=== PATIENT | male | born 1970 | race Caucasian/White ===

== ENCOUNTER 2016-04-07 21:39 | Emergency (ER) | payer OTHER ==
[2016-04-07 21:47] VITALS: BP 154/102; PULSE 74; TEMP 97.9; BMI 26.4
--- NOTE | 2016-04-07 22:30 | PDOC ---
History of Present Illness - General Chief Complaint: Injury Stated Complaint: SWOLLEN HAND Time Seen by Provider: 04/07/16 21:44 History Source: Patient, Family Exam Limitations: No Limitations - History of Present Illness Initial Comments: 04/07/16 22:25 Patient states was assisting a friend push a car when he slipped on ice and fell onto his hands that was fisted 4 days ago. States was swollen and painful at the time, use ice packs but has not resolved. Came for evaluation Occurred: reports: other (4) Modifying Factors: improves with: cold therapy Associated Symptoms (Fall): denies symptoms Past History - Travel Traveled outside of the country in the last 30 days: No Close contact w/someone who was outside of country & ill: No - Past Medical History Home Medications: Ambulatory Orders Oxycodone HCl 30 mg PO TID #10 tablet 02/20/11 HTN: Yes - Immunization History Immunization Up to Date: Yes - Psycho/Social/Smoking Cessation Hx Anxiety: No Suicidal Ideation: No Smoking Status: No Smoking History: Never smoked Number of Cigarettes Smoked Daily: 0 Review of Systems - Review of Systems Able to Perform ROS?: Yes Is the patient limited Telugu proficient: Yes Constitutional: Yes: Symptoms Reported, See HPI. No: Chills, Fever HEENTM: No: Symptoms Reported Musculoskeletal: Yes: Symptoms Reported, Joint Pain, Joint Swelling Integumentary: Yes: Symptoms Reported, See HPI, Bruising Neurological: Yes: Symptoms reported, Paresthesia All Other Systems: Reviewed and Negative *Physical Exam - Vital Signs Last Vital Signs Temp Pulse Resp BP Pulse Ox 97.9 F 74 18 154/102 98 04/07/16 21:45 04/07/16 21:45 04/07/16 21:45 04/07/16 21:45 04/07/16 21:45 - Physical Exam General Appearance: Yes: Nourished, Appropriately Dressed, Apparent Distress, Mild Distress HEENT: positive: CORKY, Normal ENT Inspection, TMs Normal, Pharynx Normal Neck: positive: Supple. negative: Tender, Lymphadenopathy (R), Lymphadenopathy (L) Respiratory/Chest: positive: Lungs Clear Extremity: positive: Normal Capillary Refill, Tender (2 midpoint hand, worse on the ulnar aspect, unable to flex and extend and painful movement with fourth and fifth digits. Neurovascular intact intact to fingers). 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 Ortho-Glass boxer splint placed with sling and patient encouraged to follow-up this week for further evaluation from Dr. Ma/on-call physician and hand specialist *DC/Admit/Observation/Transfer Diagnosis at time of Disposition: Boxer's fracture Qualifiers: Encounter type: initial encounter Fracture type: closed Qualified Code(s): S62.309A - Unspecified fracture of unspecified metacarpal bone, initial encounter for closed fracture - Discharge Dispostion Disposition: HOME Condition at time of disposition: Stable Admit: No - Referrals Referrals: Nilesh Clemons MD [Primary Care Provider] - Danny Ma MD [Staff Physician] - - Patient Instructions Printed Discharge Instructions: DI for Boxer's Fracture Additional Instructions: Rest, ice to area on and off for 15 minutes 4-6 times a day Avoid heavy lifting or exercise until pain and swelling is resolved or until further directed Keep area highly elevated to reduce swelling Use splints/Farshad wrap as directed Followup with orthopedist in one to 2 days - this week for reevaluation and casting or further treatment if significantly improved may wait one week for followup with orthopedist May use ibuprofen 2-200 mg tablets every 6 hours as needed for pain - Post Discharge Activity Work/School Note: Back to Work
== END 2016-04-07 22:34 | disposition home or self-care (01) ==
LOC: JERFT 21:39
PROC: 2W3EX1Z Immobilization of Right Hand using Splint (ICD-10-PCS; principal; 2016-04-07)
DX: S62.316A Displaced fracture of base of fifth metacarpal bone, right hand, initial encounter for closed fracture (principal); I10 Essential (primary) hypertension; W00.0XXA Fall on same level due to ice and snow, initial encounter; Y93.89 Activity, other specified; Y92.414 Local residential or business street as the place of occurrence of the external cause
CPT/HCPCS: 73110-TC-RT; 73130-TC-RT; 99281-25

== ENCOUNTER 2019-01-03 17:23 | Inpatient (IN) | payer OTHER ==
--- NOTE | 2019-01-03 17:27 | PDOC ---
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
--- NOTE | 2019-01-03 17:57 | PDOC ---
History of Present Illness - General Chief Complaint: Cold Symptoms Stated Complaint: SICK Time Seen by Provider: 01/03/19 17:24 History Source: Patient - History of Present Illness Timing/Duration: reports: other Associated Symptoms: reports: cough Past History - Past Medical History Allergies/Adverse Reactions: Allergies Allergy/AdvReac Type Severity Reaction Status Date / Time No Known Allergies Allergy Verified 01/03/19 17:28 Home Medications: Ambulatory Orders Oxycodone HCl 30 mg PO TID #10 tablet 02/20/11 COPD: No HTN: Yes Other medical history: Sarcodoisis - Immunization History Immunization Up to Date: Yes - Psycho Social/Smoking Cessation Hx Smoking Status: No Smoking History: Never smoked Number of Cigarettes Smoked Daily: 0 Information on smoking cessation initiated: No Hx Alcohol Use: No Drug/Substance Use Hx: No Review of Systems - Review of Systems Constitutional: No: Chills, Fever Respiratory: Yes: Cough, Shortness of Breath. No: Wheezing, Hemoptysis Cardiac (ROS): No: Chest Pain *Physical Exam - Vital Signs Last Vital Signs Temp Pulse Resp BP Pulse Ox 97.5 F L 85 19 170/85 99 01/03/19 17:25 01/03/19 17:25 01/03/19 17:25 01/03/19 17:25 01/03/19 17:25 - Physical Exam General Appearance: Yes: Appropriately Dressed. No: Apparent Distress HEENT: positive: Normal Voice Neck: positive: Supple. negative: Lymphadenopathy (R), Lymphadenopathy (L) Respiratory/Chest: positive: Lungs Clear, Normal Breath Sounds. negative: Respiratory Distress, Wheezing Cardiovascular: positive: Regular Rate, S1, S2 Integumentary: positive: Dry, Warm Neurologic: positive: Fully Oriented, Alert, Normal Mood/Affect ED Treatment Course - LABORATORY CBC & Chemistry Diagram: 01/03/19 17:50 01/03/19 17:50 - RADIOLOGY Radiology Studies Ordered: Category Date Time Status CHEST CT WITHOUT CONTRAST [CT] Stat CT Scan 01/03/19 17:52 Ordered Medical Decision Making - Medical Decision Making 01/03/19 17:53 48-year-old male history of hypertension, pulmonary sarcoids, taken off steroids many years ago per patient, follows up with transition rn in [facility], here with mostly dry cough for 6 days with possible shortness of breath. No hemoptysis, chest pain, wheezing, fever or chills see exam Cough w/ ? sob H/o pulm sarcoids, no longer on steroids Stable here w/ clear chest/lungs Extensive interstitial infiltrates on CXR today, s/p CT chest 2013 at [facility] read as extensive mediastinal and b/l hilar lymphadenopathy -will get dry CT chest to better evaluate -labs 01/03/19 18:[address] shows some chronic findings seen on prior imaging and "extensive interstitial infiltrates" which was not seen on prior study, cannot rule out acute pneumonitis. Given cough and possible shortness of breath in the setting of worsening sarcoids, will start on antibiotics, steroids and admit as d/w ED attg. Case discussed with Dr. Joyner of pulmonology who agrees w/ above management and states he will see patient inhouse in the am. Labs remarkable for creatinine of 3 w/ calcium of 14. Labs in 2013 here were within normal limits. Suspect numbers most likely chronic as no acute sxs, i.e. AMS, bodyaches, GI, cardiac or sxs. Patient reports being told several years ago that his kidney test was high but does not remember the number. Has since been lost to follow-up. Currently on metoprolol for high blood pressure. Consult also placed for renal 01/03/19 19:47 At this time have not heard back from renal. Pending callback from hospitalist to admit 01/03/19 19:53 Discussed with hospitalist and patient admitted Discharge - Discharge Information Problems reviewed: Yes Clinical Impression/Diagnosis: Cough, H/O sarcoidosis, Elevated serum creatinine, Hypercalcemia Condition: Fair Disposition: HOME - Admission Yes - Follow up/Referral - Patient Discharge Instructions - Post Discharge Activity
[2019-01-03 18:16] LABS: BASO % 0.9 % (0-2.0); EOS % 3.9 % (0-4.5); LYMPH % 16.1 % (8-40); MCH 28.9 pg (25.7-33.7); MCHC 33.2 g/dl (32.0-35.9); MEAN PLT VOLUME 10.2 fl (7.5-11.1); MONO % 12.2 % (3.8-10.2); NEUT % 66.9 % (42.8-82.8); PLATELET COUNT 204 K/MM3 (134-434); RBC 5.17 M/mm3 (4.00-5.60); RDW 13.3 % (11.9-15.9); WHITE BLOOD COUNT 7.7 K/mm3 (4.0-10.0)
[2019-01-03 18:37] LABS: ALBUMIN 3.6 g/dl (3.4-5.0); ALK PHOS 122 U/L (45-117); ANION GAP 6 MMOL/L (8-16); BILIRUBIN,TOTAL 0.4 mg/dL (0.2-1); BLOOD UREA NITROGEN 29.2 mg/dL (7-18); CHLORIDE 100 mmol/L (98-107); CO2 30 mmol/L (21-32); GLUCOSE,RANDOM 105 mg/dL (74-106); POTASSIUM 4.3 mmol/L (3.5-5.1); SGOT/AST 17 U/L (15-37); SGPT/ALT 27 U/L (13-61); SODIUM 136 mmol/L (136-145); TOT PROT 8.4 g/dl (6.4-8.2)
[2019-01-03 18:40] LABS: CALCIUM 14.7 mg/dL (8.5-10.1)
[2019-01-03] MEDS ORDERED: methylPREDNISolone NA SUCC 125 MG/2 ML VIAL IVPUSH ONE (18:48)
[2019-01-03] MEDS ORDERED: AZITHROMYCIN IVPB 500 MG in DEXTROSE 5%-WATER - 250 ML IVPB ONE (18:48)
[2019-01-03] MEDS ORDERED: CEFTRIAXONE 1 GM in DEXTROSE 5%-WATER - 50 ML IVPB ONE (18:48)
[2019-01-03] MEDS ORDERED: SODIUM CHLORIDE 1,000 ML IV STA ×2 (18:49→20:57)
[2019-01-03] MEDS ORDERED: AZITHROMYCIN IVPB 500 MG/250 ML BAG IVPB ONE (19:20)
[2019-01-03] MEDS ORDERED: methylPREDNISolone NA SUCC 125 MG/2 ML VIAL ONE (19:21)
[2019-01-03] MEDS ORDERED: cefTRIAXone SODIUM 1 GM VIAL ONE (19:21)
--- NOTE | 2019-01-03 19:59 | PN ---
Teaching Attending Note Name of Resident: Yusef Miguel ATTENDING PHYSICIAN STATEMENT I saw and evaluated the patient. I reviewed the resident's note and discussed the case with the resident. I agree with the resident's findings and plan as documented. SUBJECTIVE: Patient is a 48 year old man with PMH of Hypertension, Pulmonary sarcoidosis ( off steroids) and ?CKD presenting to the ER with dry cough for 6 days with possible shortness of breath. Also had congestion and subjective chills and was evaluated at an Urgent care. Say he took the Flu shot. They discharged him with Nicole Jo. Has had headache, poor appetite and and one loose bowel movement. Denies hemoptysis, chest pain, wheezing, fever or chills. Has been off steroids for years and follows up with [employer] in [place]. Denies tobacco, alcohol or illicit drug use. No recent sick contacts but recently travelled to the [facility]. FH of hypertension and osteoporosis. OBJECTIVE: Alert Vital Signs Period Temp Pulse Resp BP Sys/Price Pulse Ox Last 24 Hr 97.5 F 85 19 170/85 99 HEENT: No Jaundice, eye redness or discharge, PERRLA, EOMI. Normocephalic, atraumatic. External ears are normal and hearing is grossly intact. No nasal discharge. Neck: Supple, nontender. No palpable adenopathy or thyromegaly. No JVD Chest: Good effort. Clear to auscultation and percussion. Heart: Regular. No S3, rub or murmur Abdomen: Not distended, soft, nontender and no HSM. No rebound or guarding. Normal bowel sounds. Ext: Peripheral pulses intact. No leg edema. Skin: Warm and dry. No petechiae, rash or ecchymosis. Neuro: Alert. Oriented x3. CN 2-12 grossly intact. Sensation grossly intact in all four extremities and DTR are symmetric. Psych: Appropriate mood and affect. Good insight. Current Medications Generic Name Dose Route Start Last Admin Trade Name Freq PRN Reason Stop Dose Admin Heparin Sodium (Porcine) 5,000 unit 01/04/19 06:00 Heparin - SQ TID WENDY Home Medications Medication Instructions Recorded Oxycodone HCl 30 mg PO TID #10 tablet 02/20/11 Abnormal Lab Results 01/03/19 01/03/19 17:50 17:50 Monocytes % 12.2 H Anion Gap 6 L BUN 29.2 H Creatinine 3.0 H Calcium 14.7 H* Alkaline Phosphatase 122 H Total Protein 8.4 H ASSESSMENT AND PLAN: 1. Flare up of Pulmonary Sarcoidosis - No obvious precipitating factor. CXR and CT chest show new extensive bilateral interstitial infiltrates. Chest CT also shows mediastinal and hilar lymphadenopathy as well as a sclerotic lesion within T10 vertebral body - an MRI of thoracic spine is recommended. ER staff discussed the case with the [employer] and patient started on Rocephin, Azithromycin, Solumedrol and IV NS. Will check Mg, PTH, Phosphate levels and trend serum calcium while hydrating with IV NS at 150 ml/hour. Will get urinalysis and treat with prednisone 40 mg po qd and protonix 40 mg po qd. No need to continue IV antibiotics at this time. Consult Pulmonary. EKG shows NSR with RBBB, LAFB and t-wave inversion in III and V3. Will repeat EKG and troponin. Will continue comprehensive care for all of patients comorbid conditions. Will get MRI thoracic spine to investigate lesion on T10. 2. CKD - Cause unclear. Likely has superimposed JACKIE due to polyuria induced by hypercalcemia. Will get kidney sonogram and monitor urine output while hydrating him. Will consult nephrology and avoid nephrotoxic agents such as NSAIDS, aminoglycosides, contrast dyes and certain Alternative medicine products. 3. Uncontrolled hypertension - Restart suitable outpatient antihypertensive drugs when clinically appropriate. 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 Nonpharmacologic measures to control hypertension like weight loss, salt restriction and exercise discussed. Importance of adherence to treatment regimen and attainment of normotension emphasized. 4. DVT prophylaxis - Heparin 5000u sq tid. 5. Advance directives - Full code
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
[2019-01-03 22:54] LABS: URINE APPEARANCE CLOUDY; URINE BILIRUBIN NEGATIVE (NEGATIVE); URINE COLOR YELLOW; URINE GLUCOSE (UA) NEGATIVE (NEGATIVE); URINE KETONE NEGATIVE (NEGATIVE); URINE LEUK ESTERASE NEGATIVE (NEGATIVE); URINE NITRITE NEGATIVE (NEGATIVE); URINE PROTEIN NEGATIVE (NEGATIVE)
[2019-01-03] MEDS ORDERED: amLODIPine BESYLATE 5 MG TABLET (FP) PO ONE (22:57)
[2019-01-03] MEDS ORDERED: amLODIPine BESYLATE 5 MG TABLET (FP) ONE (23:02)
[2019-01-04] MEDS: SODIUM CHLORIDE 1,000 ML IV SCH ×3 (00:41→21:17)
[2019-01-04] MEDS: HEPARIN NA (PORCINE) 5,000 UNITS/ML 1ML VIAL SQ SCH ×3 (05:55→21:25)
[2019-01-04 09:29] LABS: HEMATOCRIT 39.8 % (35.4-49); HEMOGLOBIN 13.2 GM/dL (11.7-16.9); MCH 28.6 pg (25.7-33.7); MCHC 33.2 g/dl (32.0-35.9); MEAN CELL VOLUME 86.1 fl (80-96); MEAN PLT VOLUME 10.9 fl (7.5-11.1); PLATELET COUNT 182 K/MM3 (134-434); RBC 4.62 M/mm3 (4.00-5.60); RDW 13.1 % (11.9-15.9); WHITE BLOOD COUNT 6.5 K/mm3 (4.0-10.0)
[2019-01-04] MEDS: predniSONE 20 MG TABLET (UD) PO SCH (09:51)
[2019-01-04] MEDS: PANTOPRAZOLE 40 MG TABLET (FP) PO SCH (09:51)
[2019-01-04] MEDS ORDERED: DOXYCYCLINE INJECTION 100 MG in DEXTROSE 5%-WATER - 100 ML IVPB SCH (10:00)
[2019-01-04] MEDS ORDERED: DOXYCYCLINE INJECTION 100 MG in DEXTROSE 5%-WATER 100 ML IVPB SCH (10:00)
[2019-01-04 10:05] LABS: BLOOD UREA NITROGEN 31.6 mg/dL (7-18); CALCIUM 12.8 mg/dL (8.5-10.1); CREATININE 2.9 mg/dL (0.55-1.3); MAGNESIUM 1.7 mg/dL (1.8-2.4); PHOSPHOROUS 3.4 mg/dL (2.5-4.9); POTASSIUM 4.4 mmol/L (3.5-5.1)
[2019-01-04] MEDS ORDERED: MAGNESIUM OXIDE 400 MG TABLET (FP) PO ONE (10:17)
[2019-01-04 11:44] VITALS: BMI 23.8
--- NOTE | 2019-01-04 12:01 | CON.PULM ---
Consult Consult Specialty:: PULMONARY Referred by:: Dr Roberts Reason for Consultation:: shortness of breath - History of Present Illness Chief Complaint: shortness of breath History of Present Illness: 48yo male with h/o HTN, sarcoidosis who was admitted with shortness of breath and cough for the past month. Reports subjective fevers and chills. +cough productive of yellow sputum. He was diagnosed with sarcoidosis via bronchoscopy about 2-3 years ago, was on prednisone for 6 months at a time, last on steroids 6 months ago. He is a nonsmoker. 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 CT chest done showing bilateral interstitial infiltrates as well as mediastinal lymphadenopathy. - History Source History Provided By: Patient, Medical Record Limitations to Obtaining History: No Limitations - Past Medical History Cardio/Vascular: Yes: HTN Pulmonary: Yes: Other (sarcoidosis) - Alcohol/Substance Use Hx Alcohol Use: Yes (social) - Smoking History Smoking history: Never smoked Have you smoked in the past 12 months: No Aproximately how many cigarettes per day: 0 Home Medications - Allergies Allergies/Adverse Reactions: Allergies Allergy/AdvReac Type Severity Reaction Status Date / Time No Known Allergies Allergy Verified 01/03/19 17:28 - Home Medications Home Medications: Ambulatory Orders NK [No Known Home Medication] 01/03/19 Review of Systems - Review of Systems Constitutional: reports: Chills, Fever, Weakness Eyes: denies: Recent Change in Vision HENT: denies: Nasal Congestion, Throat Pain Neck: denies: Stiffness, Tenderness Cardiovascular: reports: Shortness of Breath. denies: Chest Pain, Edema, Palpitations Respiratory: reports: Cough, SOB on Exertion. denies: Hemoptysis, Wheezing Gastrointestinal: denies: Abdominal Pain, Nausea, Vomiting Genitourinary: denies: Dysuria, Hematuria Neurological: denies: Dizziness, Headache Endocrine: denies: Unexplained Weight Loss Physical Exam Vital Sings: Vital Signs Temperature 97.4 F L 01/04/19 05:00 Pulse Rate 88 01/04/19 05:00 Respiratory Rate 01/04/19 05:00 Blood Pressure 147/90 01/04/19 05:00 O2 Sat by Pulse Oximetry (%) 96 01/04/19 02:21 Constitutional: Yes: Calm Eyes: Yes: Conjunctiva Clear, EOM Intact HENT: Yes: Atraumatic, Normocephalic Neck: Yes: Supple, Trachea Midline Cardiovascular: Yes: Regular Rate and Rhythm Respiratory: Yes: Diminished (decreased breath sounds at the bases) ...Clubbing: No Gastrointestinal: Yes: Normal Bowel Sounds, Soft. No: Tenderness Edema: No Neurological: Yes: Alert, Oriented Labs: CBC, BMP 01/04/19 08:49 01/04/19 06:00 Imaging - Results Chest X-ray: Report Reviewed, Image Reviewed Cat Scan: Report Reviewed, Image Reviewed (bilateral interstitial infiltrates, mediastinal lymphadenopathy) Assessment/Plan Sarcoidosis r/o Pneumonia Acute vs CKD Hypercalcemia likely related to sarcoidosis HTN - agree with prednisone - inhaled bronchodilators - antibiotics - f/u cultures - IVF - monitor lytes - will likely need chronic steroids if associated with hypercalcemia - will need outpt PFTs and f/u of chest imaging in 6-8 weeks - DVT prophylaxis Thank you for this consult Jos Alvarado MD
[2019-01-04] MEDS ORDERED: ALBUTEROL SO4 0.083% IH SOL 2.5 MG/3 ML VIAL.NEB. NEB PRN (12:25)
[2019-01-04] MEDS ORDERED: DEXTROSE 5%-WATER 100 ML IVPB ONE (12:29)
[2019-01-04] MEDS ORDERED: DOXYCYCLINE HYCLATE 100 MG VIAL ONE (12:29)
--- NOTE | 2019-01-04 12:38 | EKG ---
Test Reason : Blood Pressure : / mmHG Vent. Rate : 081 BPM Atrial Rate : 081 BPM P-R Int : 176 ms QRS Dur : 156 ms QT Int : 396 ms P-R-T Axes : 056 -66 013 degrees QTc Int : 460 ms NORMAL SINUS RHYTHM RIGHT BUNDLE BRANCH BLOCK LEFT ANTERIOR FASCICULAR BLOCK BIFASCICULAR BLOCK T WAVE ABNORMALITY, CONSIDER INFEROLATERAL ISCHEMIA ABNORMAL ECG WHEN COMPARED WITH ECG OF 03-JAN-2019 19:43, NO SIGNIFICANT CHANGE WAS FOUND Confirmed by AUNG BARTLETT MD ([id number]) on 01/04/2019 12:38:12 PM Referred By: Confirmed By:AUNG BARTLETT MD
--- NOTE | 2019-01-04 12:38 | EKG ---
Test Reason : Blood Pressure : / mmHG Vent. Rate : 081 BPM Atrial Rate : 081 BPM P-R Int : 176 ms QRS Dur : 162 ms QT Int : 394 ms P-R-T Axes : 055 -69 012 degrees QTc Int : 457 ms NORMAL SINUS RHYTHM RIGHT BUNDLE BRANCH BLOCK LEFT ANTERIOR FASCICULAR BLOCK BIFASCICULAR BLOCK ABNORMAL ECG NO PREVIOUS ECGS AVAILABLE Confirmed by TRI GRAY, AUNG ([id number]) on 01/04/2019 12:38:26 PM Referred By: Confirmed By:AUNG BARTLETT MD
--- NOTE | 2019-01-04 13:42 | PN ---
Addendum entered and electronically signed by Devora Briggs, RESIDENT 01/04/19 18 :18: abx changed to PO keflex and doxycycline MRI of spine ordered to check sclerotic lesion. Addendum entered and electronically signed by Devora Briggs, RESIDENT 01/04/19 14 :21: note: hypercalcemia ~15 should resolve w/ chronic prednisone. if does not, agents such as ketoconazole, bisphosphonates can used . likely 2/2 sarcoid Original Note: Progress Note (short form) - Note Progress Note: Hospitalist Medicine States that he developed worsening SOB, productive cough over the last week. A/ w few episodes of diarrhea and subjective chills. 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 Traveled to [place] mo ago. Never smoked. Used to f/u with Dr. Villegas from [facility] for his sarcoid. Lately has had trouble making appointments. Had been tx with prednisone previously. States that he also has known renal dz and follows with Dr. Danny Kidd [phone]. ([facility]) Vitals 01/04/19 05:00 Temperature 97.4 F L Pulse Rate 88 Respiratory 19 Rate Blood Pressure 147/90 Physical exam general: sitting up comfortably, in NAD. pleasant HEENT: NCAT, PERRLA, dry mucous membranes neck: supple cardio: S1, S2 RRR. no r/m/g pulm: decreased breath sounds. no accessory m usage abdomen: soft, nontender, nondistended neuro: equine dentist 2-12 grossly intact. 5/5 motor strength UE, LE. sensation intact LE: 2+ pulses, no edema Laboratory Tests 01/04/19 01/04/19 01/04/19 06:00 08:49 08:49 WBC 6.5 Hgb 13.2 Hct 39.8 Plt Count 182 Sodium 137 Potassium 4.4 Chloride 102 Carbon Dioxide 27 BUN 31.6 H Creatinine 2.9 H Calcium 12.8 H Pending Magnesium 1.7 L PTH Intact Pending PTH Intact Intraop 0 m Pending Microbiology 01/03/19 22:30 Urine For Antigen Detection Legionella Antigen - Final 01/03/19 22:30 Urine For Antigen Detection Streptococcus pneumoniae Antigen (M - Final Imaging 01/03/2019: Chest CT: extensive mediastinal and bilateral hilar lymphadenopathy c/w sarcoidosis. Possibility of acute pneumonitis can't be excluded. Sclerotic lesion within the T10 vertebral body. 01/03/19: renal sono: no hydro, no acute pathology EKG :RBBB, LAFB, TWI leads 3, V3, qt 465ms Assessment/Plan 48 y/o M with PMH of HTN, Pulmonary sarcoidosis (off steroids) and CKD who presented with dry cough, few episodes of diarrhea and subjective chills for six day duration a/w SOB. #sarcoid flare #r/o CAP PNA -started on prednisone 40mg qd (Day 1) -c/w GI PPX while on steroid -c/w duonebs RQID, ventolin nebs PRN -f/u RSV panel, AFB, sputum cx, urine legionella Ag -c/w ceftriaxone (Day2), doxy (Day1) for CAP -will need outpt PFTs and f/u chest imaging in 6-8 wks #HTN -pt not on any home meds -will check other files w/ outside specialists before starting agent #CKD -will need files from [facility] -awaiting call back; possible 2/2 sarcoid -renal sono: WNL, no hydro or acute abnormality -c/w IVF in case of JACKIE on CKD #F/E/N IV NS 125 cc/hr as dry continue to follow lytes na controlled diet #PPX DVT: Hep 5k TID GI: protonix #Dispo admitted to med-surg <Devora Briggs - Last Filed: 01/04/19 14:01> - Note Progress Note: Seen and examined; discussed at length with resident team and indicated consultants. Independently reviewed all hou historical, PE, diagnostic, and imaging findings. Agree with above documentation and assessment and plan as documented by resident aside from as supplemented below. 10 sys ROS done and negative aside from HPI VS labs imaging reviewed NAD, AAO resting in bed NC AT EOMI PERRLA HR wnl, +s1/2 NT ND +BS CN2-12 wnl, no progressive neuro sx Normal mood, appropriate behavior A/P: Presents with <Rudi Roberts - Last Filed: 01/05/19 10:23>
--- NOTE | 2019-01-04 15:25 | CONSULT ---
Consult - text type - Consultation Consultation Note: Renal consult for JACKIE vs. CKD This is a 48 year old gentleman with history of Pulmonary sarcoidosis and hypertension who presented from home with complaints of shortness of breath and found to have Cr of 2.9. Pt does follow up with a dirt supervisor in the city but has not seem them in over 6 months. He does not know what his baseline renal function is. He denies any history of kidney stones. Does use NSAIDs at home for pain. Currently denies any flank pain and is making urine w/o obstructive symptoms. Denies any recent antibiotic use or contrast exposure. No shortness of breath, chest pain, fever or chills at the present time. PMhx: as above Allergies: NKDA Family Hx: NC Social Hx: No tobacco use ROS: As per HPI, all other pertinent ros negative Home Medications Medication Instructions Recorded Meloxicam 15 mg PO DAILY 01/04/19 Oxycodone HCl 30 mg PO Q6H PRN 01/04/19 Zolpidem Tartrate 10 mg PO DAILY PRN 01/04/19 Vital Signs Temperature 97.4 F L 01/04/19 05:00 Pulse Rate 88 01/04/19 05:00 Respiratory Rate 19 01/04/19 05:00 Blood Pressure 147/90 01/04/19 05:00 O2 Sat by Pulse Oximetry (%) 96 01/04/19 02:21 Intake & Output 01/01/19 01/02/19 01/03/19 01/04/19 23:59 23:59 23:59 23:59 Intake Total 915 Balance 915 Weight 77.927 kg 77.564 kg NAD awake and alert neck supple no JVD RRR, no M/R CTA soft NT/ND no bladder distension, no CVA tenderness no LE edema, clubbing or cyanosis no skin rash CBC, BMP 01/04/19 08:49 01/04/19 06:00 Current Medications Albuterol Sulfate (Ventolin 0.083% Nebulizer Soln -) 1 amp NEB Q4H PRN PRN Reason: SHORT OF BREATH/WHEEZING Albuterol/Ipratropium (Duoneb -) 1 amp NEB RQID WEND[facility] Heparin Sodium (Porcine) (Heparin -) 5,000 unit SQ TID [facility] Last Admin: 01/04/19 14:41 Dose: 5,000 unit Sodium Chloride (Normal Saline -) 1,000 mls @ 125 mls/hr IV ASDIR [facility] Last Admin: 01/04/19 00:41 Dose: 125 mls/hr Ceftriaxone Sodium 1 gm/ (Dextrose) 50 mls @ 100 mls/hr IVPB DAILY [facility] Doxycycline Hyclate 100 mg/ (Dextrose) 100 mls @ 100 mls/hr IVPB BID [facility] Last Admin: 01/04/19 12:33 Dose: 100 mls/hr Pantoprazole Sodium (Protonix -) 40 mg PO DAILY [facility] Last Admin: 01/04/19 09:51 Dose: 40 mg Prednisone (Deltasone -) 40 mg PO DAILY [facility] Last Admin: 01/04/19 09:51 Dose: 40 mg 48 year old gentleman with history of Pulmonary sarcoidosis and hypertension who presented from home with complaints of shortness of breath and found to have Cr of 2.9. 1. Acute kidney injury 2. Chronic kidney disease 3. Sarcoidosis 4. Hypertension 5. Hypercalcemia Differential for JACKIE/CKD includes ATN (NSIAD use) vs. nephrocalcinosis vs. interstitial nephritis vs. volume depletion Renal US showed no signs of stones or obstruction FeNa is 7.9% indicating tubular injury and UA w/o WBC or RBC Check urine eosinophils agree with trial of IV hydration no acute indication for INFUSION THERAPY NURSE at this time may benefit from renal biopsy as outpatient if there is no significant improvement in renal function Continue steroids as ordered Trend Ca levels Follow up PTH, and pth related peptide. Thank you Ziyad Ramirez DO
[2019-01-04] MEDS: ALBUTEROL SO4 2.5/IPRATROPIUM 0.5 INH SOL 3 ML VIAL.NEB. NEB SCH ×2 (16:32→21:15)
[2019-01-04] MEDS: DOXYCYCLINE HYCLATE 100 MG CAPSULE PO SCH (17:19)
[2019-01-04] MEDS ORDERED: CEFTRIAXONE 1 GM in DEXTROSE 5%-WATER - 50 ML IVPB SCH (19:00)
[2019-01-04] MEDS: CEPHALEXIN MONOHYDRATE 250 MG CAPSULE (FP) PO SCH (21:25)
[2019-01-05] MEDS: SODIUM CHLORIDE 1,000 ML IV SCH (01:32)
[2019-01-05] MEDS: HEPARIN NA (PORCINE) 5,000 UNITS/ML 1ML VIAL SQ SCH ×2 (06:00→15:37)
[2019-01-05] MEDS: ALBUTEROL SO4 2.5/IPRATROPIUM 0.5 INH SOL 3 ML VIAL.NEB. NEB SCH ×3 (07:50→15:25)
[2019-01-05 08:45] LABS: BASO % 0.4 % (0-2.0); EOS % 0.2 % (0-4.5); HEMATOCRIT 35.6 % (35.4-49); HEMOGLOBIN 11.7 GM/dL (11.7-16.9); LYMPH % 13.8 % (8-40); MCH 28.6 pg (25.7-33.7); MCHC 32.8 g/dl (32.0-35.9); MEAN CELL VOLUME 87.1 fl (80-96); MEAN PLT VOLUME 11.1 fl (7.5-11.1); MONO % 6.1 % (3.8-10.2); NEUT % 79.5 % (42.8-82.8); PLATELET COUNT 157 K/MM3 (134-434); RBC 4.09 M/mm3 (4.00-5.60); RDW 12.8 % (11.9-15.9); WHITE BLOOD COUNT 9.7 K/mm3 (4.0-10.0)
[2019-01-05 08:55] LABS: BLOOD UREA NITROGEN 33.8 mg/dL (7-18); CREATININE 2.4 mg/dL (0.55-1.3); MAGNESIUM 1.7 mg/dL (1.8-2.4); PHOSPHOROUS 3.5 mg/dL (2.5-4.9)
[2019-01-05] MEDS ORDERED: PT OWN MED DRAWER 7, Y5N ONE (09:09)
[2019-01-05] MEDS: PANTOPRAZOLE 40 MG TABLET (FP) PO SCH (09:17)
[2019-01-05] MEDS: CEPHALEXIN MONOHYDRATE 250 MG CAPSULE (FP) PO SCH (09:17)
[2019-01-05] MEDS: DOXYCYCLINE HYCLATE 100 MG CAPSULE PO SCH (09:17)
[2019-01-05] MEDS: predniSONE 20 MG TABLET (UD) PO SCH (09:17)
[2019-01-05] MEDS ORDERED: guaiFENesin 600 MG TABLET.ER (FP) PO SCH (10:00)
[2019-01-05] MEDS ORDERED: MAGNESIUM OXIDE 400 MG TABLET (FP) PO ONE (12:00)
--- NOTE | 2019-01-05 13:24 | EKG ---
Test Reason : Blood Pressure : / mmHG Vent. Rate : 084 BPM Atrial Rate : 084 BPM P-R Int : 174 ms QRS Dur : 156 ms QT Int : 410 ms P-R-T Axes : 059 -66 000 degrees QTc Int : 484 ms NORMAL SINUS RHYTHM RIGHT BUNDLE BRANCH BLOCK LEFT ANTERIOR FASCICULAR BLOCK BIFASCICULAR BLOCK T WAVE ABNORMALITY, CONSIDER INFEROLATERAL ISCHEMIA ABNORMAL ECG WHEN COMPARED WITH ECG OF 03-JAN-2019 22:03, NO SIGNIFICANT CHANGE WAS FOUND Confirmed by ZANE JUAREZ MD ([id number]) on 01/05/2019 1:24:18 PM Referred By: Confirmed By:ZANE JUAREZ MD
--- NOTE | 2019-01-05 13:49 | PN ---
Progress Note (short form) - Note Progress Note: Renal follow up for JACKIE/CKD Seen and examined at the bedside offers no acute complaints shortness of breath is much improved no chest pain, fever, chills, N/V/D making urine tolerating oral diet Vital Signs Temperature 98.7 F 01/05/19 12:29 Pulse Rate 62 01/05/19 12:29 Respiratory Rate 20 01/05/19 12:29 Blood Pressure 137/81 01/05/19 12:29 O2 Sat by Pulse Oximetry (%) 94 L 01/04/19 21:00 Intake & Output 01/02/19 01/03/19 01/04/19 01/05/19 23:59 23:59 23:59 23:59 Intake Total 1515 2180 Output Total 200 Balance 1515 1980 Weight 77.927 kg 77.564 kg NAD no JVD RRR, no M/R CTA soft NT/ND no LE edema, clubbing or cyanosis CBC, BMP 01/05/19 07:10 01/05/19 07:10 Laboratory Tests 01/04/19 01/05/19 06:00 07:10 Calcium 12.8 H 11.0 H Phosphorus 3.4 3.5 Magnesium 1.7 L 1.7 L Current Medications Albuterol Sulfate (Ventolin 0.083% Nebulizer Soln -) 1 amp NEB Q4H PRN PRN Reason: SHORT OF BREATH/WHEEZING Albuterol/Ipratropium (Duoneb -) 1 amp NEB RQID [facility] Last Admin: 01/05/19 11:23 Dose: 1 amp Cephalexin HCl (Keflex -) 250 mg PO BID [facility] Last Admin: 01/05/19 09:17 Dose: 250 mg Doxycycline Hyclate (Vibramycin -) 100 mg PO BID@1000,1800 [facility] Last Admin: 01/05/19 09:17 Dose: 100 mg Guaifenesin (Mucinex -) 600 mg PO BID [facility] Last Admin: 01/05/19 10:55 Dose: 600 mg Heparin Sodium (Porcine) (Heparin -) 5,000 unit SQ TID [facility] Last Admin: 01/05/19 06:00 Dose: 5,000 unit Sodium Chloride (Normal Saline -) 1,000 mls @ 125 mls/hr IV ASDIR [facility] Last Admin: 01/05/19 01:32 Dose: 125 mls/hr Pantoprazole Sodium (Protonix -) 40 mg PO DAILY [facility] Last Admin: 01/05/19 09:17 Dose: 40 mg Prednisone (Deltasone -) 40 mg PO DAILY [facility] Last Admin: 01/05/19 09:17 Dose: 40 mg 48 year old gentleman with history of Pulmonary sarcoidosis and hypertension who presented from home with complaints of shortness of breath and found to have Cr of 2.9. 1. Acute kidney injury 2. Chronic kidney disease 3. Sarcoidosis 4. Hypertension 5. Hypercalcemia Differential for JACKIE/CKD includes ATN (NSIAD use) vs. nephrocalcinosis vs. interstitial nephritis Baseline Cr from 06/2017 was 1.6, rise in Cr now can be attributed to progressive disease vs. injury in setting of hypercalcinosis. FeNa is 7.9% indicating tubular injury and UA w/o WBC or RBC Urine eosinophils pending agree with trial of IV hydration may benefit from renal biopsy as outpatient Continue steroids as ordered Ca levels improved advised to continue aggressive oral hydration continue PO prednisone at present dose to follow up with us or prior nephrologsit on discharge. Thank you Ziyad Ramirez DO
--- NOTE | 2019-01-05 14:12 | PN ---
Progress Note, Physician History of Present Illness: pulmonary alert,comfortable,-sob,-congestion - Current Medication List Current Medications: Active Medications Albuterol Sulfate (Ventolin 0.083% Nebulizer Soln -) 1 amp NEB Q4H PRN PRN Reason: SHORT OF BREATH/WHEEZING Albuterol/Ipratropium (Duoneb -) 1 amp NEB RQID [facility] Last Admin: 01/05/19 11:23 Dose: 1 amp Cephalexin HCl (Keflex -) 250 mg PO BID [facility] Last Admin: 01/05/19 09:17 Dose: 250 mg Doxycycline Hyclate (Vibramycin -) 100 mg PO BID@1000,1800 [facility] Last Admin: 01/05/19 09:17 Dose: 100 mg Guaifenesin (Mucinex -) 600 mg PO BID [facility] Last Admin: 01/05/19 10:55 Dose: 600 mg Heparin Sodium (Porcine) (Heparin -) 5,000 unit SQ TID [facility] Last Admin: 01/05/19 06:00 Dose: 5,000 unit Sodium Chloride (Normal Saline -) 1,000 mls @ 125 mls/hr IV ASDIR [facility] Last Admin: 01/05/19 01:32 Dose: 125 mls/hr Pantoprazole Sodium (Protonix -) 40 mg PO DAILY [facility] Last Admin: 01/05/19 09:17 Dose: 40 mg Prednisone (Deltasone -) 40 mg PO DAILY [facility] Last Admin: 01/05/19 09:17 Dose: 40 mg - Objective Vital Signs: Vital Signs Temperature 98.7 F 01/05/19 12:29 Pulse Rate 62 01/05/19 12:29 Respiratory Rate 20 01/05/19 12:29 Blood Pressure 137/81 01/05/19 12:29 O2 Sat by Pulse Oximetry (%) 94 L 01/04/19 21:00 Constitutional: Yes: Well Nourished, Calm Eyes: Yes: WNL HENT: Yes: WNL Neck: Yes: WNL Cardiovascular: Yes: Regular Rate and Rhythm, S1, S2 Respiratory: Yes: CTA Bilaterally Gastrointestinal: Yes: Normal Bowel Sounds, Soft Extremities: Yes: WNL Edema: No Labs: CBC, BMP 01/05/19 07:10 01/05/19 07:10 Laboratory Tests 01/05/19 07:10 BUN 33.8 H Creatinine 2.4 H Calcium 11.0 H Problem List - Problems (1) Acute on chronic kidney failure Code(s): N17.9 - ACUTE KIDNEY FAILURE, UNSPECIFIED; N18.9 - CHRONIC KIDNEY DISEASE, UNSPECIFIED (2) Elevated serum creatinine Code(s): R79.89 - OTHER SPECIFIED ABNORMAL FINDINGS OF BLOOD CHEMISTRY (3) H/O sarcoidosis Code(s): Z86.2 - PRSNL HISTORY OF DIS OF THE BLD/BLD-FORM ORG/IMMUN MECHNSM (4) Hypercalcemia Code(s): E83.52 - HYPERCALCEMIA Assessment/Plan Assessment/Plan Sarcoidosis r/o Pneumonia Acute vs CKD Hypercalcemia likely related to sarcoidosis HTN - prednisone 50 MG DAILY - inhaled bronchodilators - antibiotics - IVF - monitor lytes - will likely need chronic steroids if associated with hypercalcemia - outpt PFTs and f/u of chest imaging in 6-8 weeks - DVT prophylaxis - monitor lytes renal function,Ca DR SAGE
[2019-01-05 15:13] VITALS: BP 148/74; PULSE 84; TEMP 97.4
--- NOTE | 2019-01-05 17:59 | DS ---
Physical Exam: SUBJECTIVE: Patient seen and examined at bedside. States that his breathing has improved. Ready to go home. OBJECTIVE: Vital Signs Period Temp Pulse Resp BP Sys/Price Pulse Ox Last 24 Hr 97.4 F-98.7 F 48-93 18-20 119-156/55-88 94 Physical exam general: sitting up comfortably, in NAD. pleasant HEENT: NCAT, PERRLA, dry mucous membranes neck: supple cardio: S1, S2 RRR. no r/m/g pulm: decreased breath sounds. no accessory m usage abdomen: soft, nontender, nondistended neuro: steam table attendant 2-12 grossly intact. 5/5 motor strength UE, LE. sensation intact LE: 2+ pulses, no edema LABS Laboratory Results - last 24 hr 01/05/19 01/05/19 07:10 07:10 WBC 9.7 RBC 4.09 Hgb 11.7 Hct 35.6 MCV 87.1 MCH 28.6 MCHC 32.8 RDW 12.8 Plt Count 157 MPV 11.1 Absolute Neuts (auto) 7.7 Neutrophils % 79.5 Lymphocytes % 13.8 Monocytes % 6.1 Eosinophils % 0.2 D Basophils % 0.4 Nucleated RBC % 0 Sodium 140 Potassium 4.0 Chloride 107 Carbon Dioxide 29 Anion Gap 4 L BUN 33.8 H Creatinine 2.4 H Est GFR (CKD-EPI)AfAm 35.89 Est GFR (CKD-EPI)NonAf 30.96 Random Glucose 84 Calcium 11.0 H Phosphorus 3.5 Magnesium 1.7 L Microbiology 01/03/19 22:30 Urine For Antigen Detection Legionella Antigen - Final 01/03/19 22:30 Urine For Antigen Detection Streptococcus pneumoniae Antigen (M - Final Imaging 01/03/2019: Chest CT: extensive mediastinal and bilateral hilar lymphadenopathy c/w sarcoidosis. Possibility of acute pneumonitis can't be excluded. Sclerotic lesion within the T10 vertebral body. 01/03/19: renal sono: no hydro, no acute pathology EKG :RBBB, LAFB, TWI leads 3, V3, qt 465ms HOSPITAL COURSE: Date of Admission:01/03/19 Date of Discharge: 01/05/19 Admission diagnosis: sarcoid flare, r/o PNA 48 y/o M with PMH of HTN, Pulmonary sarcoidosis (off steroids) and CKD who presented with dry cough, few episodes of diarrhea and subjective chills for six day duration a/w SOB. Chest CT revealed extensive mediastinal and bilateral hilar lymphadenopathy c/w sarcoidosis. Possibility of acute pneumonitis can't be excluded. Sclerotic lesion within the T10 vertebral body. Pt was admitted for sarcoid flare and r/o CAP PNA. He was managed as follows in the hospital: #sarcoid flare #r/o CAP PNA -received 2 doses of prednisone 40mg. is to continue on 40mg x [address] Alvarado and 30mg thereafter. will chronically be on steroids, d/t his hypercalcemia -c/w GI PPX while on steroid. sent home with protonix -c/w duonebs RQID, ventolin nebs PRN. sent with inhalers -was on cef, doxy in hospital. sent home on keflex BID, doxy BID for 4 additional days. -will need outpt PFTs and f/u chest imaging in 6-8 wks #HTN -pt not on any home meds #CKD -will f/u with Dr Ramirez -encouraged to drink 2L of water daily -f/u urine eosinophils, other renal tests from hospital #T10 sclerotic lesion on body -underwent MRI of t-spine in hospital -result will be reviewed on outpatient visit Minutes to complete discharge: 55 Discharge Summary Problems reviewed: Yes Reason For Visit: SHORTNESS OF BREATH Condition: Fair - Instructions Diet, Activity, Other Instructions: you were in the hospital because you had a flare of your sarcoid. You were seen by the primary team, a lung doctor and a kidney doctor. You improved and are being sent home. While you were here, you were also treated for possible pneumonia. Medications 1. Please continue with prednisone 40mg daily for a week until you see the pulmonary doctor (lung doctor). Please take 30mg for a week after. 2. Please also continue with: albuterol (take 1 puff every 4 hours as needed) and albuterol/ipratropium inhalers (scheduled every 6 hours) 3. You will need 4 more days of antibiotics starting tomorrow (01/06) until please take keflex 250mg - 1 pill twice a day doxycycline 100mg 1 pill twice a day as well. 4. You will take protonix (an acid suppressant) once a day while you are on the steroid. Follow up Please follow up with the following doctors: -Dr. Li, a primary care doctor on Tuesday01/09/19. She will read the thoracic spine MRI to check for the lesion at T10 that you had while you were in the hospital. -Dr. Alvarado- the lung doctor who saw you in the hospital - this week. -Dr. Ramirez - the kidney doctor who saw you in the hospital this week. He will determine if you need further testing of your kidneys or a biopsy. Care Please drink lots of water to help your kidneys. At least 2 liters a day. Additional testing You will also need: -outpatient PFTs (pulmonary function testing) and f/u of chest imaging in 6- 8 weeks. Your primary care doctor / or the lung doctor will also arrange for this. - Referrals: Devora Briggs RES [Resident] - Mekhi Li MD [Staff Physician] - 01/09/19 (9 AM) Ziyad Ramirez MD [Staff Physician] - 1 Week Jos Alvarado MD, MD [Staff Physician] - 1 Week Disposition: HOME - Home Medications Comprehensive Discharge Medication List: Ambulatory Orders Meloxicam 15 mg PO DAILY 01/04/19 Zolpidem Tartrate 10 mg PO DAILY PRN 01/04/19 Albuterol 0.083% Nebulizer Little [Ventolin 0.083% Nebulizer Soln -] 1 amp NEB Q4H PRN #2 inhaler 01/05/19 Albuterol 2.5/Ipratropium 0.5 [Duoneb -] 1 amp NEB RQID #2 inhaler 01/05/19 Cephalexin [Keflex] 250 mg PO BID #8 capsule 01/05/19 Doxycycline Hyclate 100 mg PO BID #8 tablet 01/05/19 Pantoprazole Sodium [Protonix -] 40 mg PO DAILY #30 tablet.ec 01/05/19 Prednisone 40 mg PO DAILY #7 tab.ds.pk 01/05/19 predniSONE [Deltasone -] 30 mg PO DAILY #7 tab 01/05/19 This patient is new to me today: No Emergency Visit: No Critical Care patient: No - Discharge Referral Referred to [facility] No
[2019-01-06] MEDS ORDERED: predniSONE 20 MG TABLET (UD) PO SCH (10:00)
== END 2019-01-05 17:21 | disposition home or self-care (01) | DRG 142 ==
LOC: JER 17:23 → JERFT 17:23 → JERBED 19:16 → J5S 23:34
PROVIDERS: ADMIT Internal Medicine; ATTEND Internal Medicine
DX: D86.9 Sarcoidosis, unspecified (principal); J18.9 Pneumonia, unspecified organism; E83.52 Hypercalcemia; R59.1 Generalized enlarged lymph nodes; N17.9 Acute kidney failure, unspecified; I13.10 Hypertensive heart and chronic kidney disease without heart failure, with stage 1 through stage 4 chronic kidney disease, or unspecified chronic kidney disease; N18.9 Chronic kidney disease, unspecified; R79.89 Other specified abnormal findings of blood chemistry
CPT/HCPCS: 36415; 71046-TC-FY; 71250-TC; 72146-TC; 76775-TC; 80048; 80053; 81003; 82310; 82340; 82436; 82550; 82565; 82570; 83735; 83970; 84100; 84133; 84156; 84300; 84484; 84540; 85025; 85027; 87070; 87116; 87205; 87206; 87633; 87899; 93005; 93010; 94640; 99284-25; J1644; J7030

== ENCOUNTER 2019-08-27 14:23 | Emergency (ER) | payer OTHER ==
[2019-08-27 14:56] VITALS: TEMP 98.5; BMI 25.1
--- NOTE | 2019-08-27 14:58 | PDOC ---
Rapid Medical Evaluation Chief Complaint: Shortness of Breath Time Seen by Provider: 08/27/19 14:54 Medical Evaluation: Allergies Allergy/AdvReac Type Severity Reaction Status Date / Time No Known Allergies Allergy Verified 08/14/19 13:44 08/27/19 14:55 HPI: The patient is a 48M presents with symptoms of tactile fever, dry cough, intermittent SOB x 3 days, complicated by this/these comorbidities: sarcoidosis. pt report being followed up by jboss developer who has ordered chest CT and approved by insurance to be done on outpatient. Denies any other symptoms. report no SOB now. pt has not taken anything for symptoms. pt never checked temp ROS: NEGATIVE: difficulty breathing, chest pain, lightheadedness, dizziness, nausea, vomiting and diarrhea. Other 12 point ROS reviewed and negative. Exam: General: NAD, Well-Appearing, Awake, Alert Oriented x3. Vital signs stable. ENT: No rhinorrhea or nasal congestion. Neck: FROM, no midline tenderness. Lungs: Clear to auscultation bilaterally without wheezes, rhonchi or rales. Normal excursion. Patient is able to speak in full sentences. Heart: HR: Regular rhythm, S1-S2 present, no murmurs rubs or gallops. Abdomen: Non-distended. MSK/Extremities: No decrease ROM, No obvious deformities. No obvious cyanosis noted. Neuro: Normal Gait, Cranial Nerves II through XII Grossly Intact. Skin: No obvious rashes, bruising. Color Normal Appearing. Assessment/Plan: [Cough/fever] Patient has a history of this/these comorbidities: [none], denies recent travel and known COVID exposure. Patient does not meet testing criteria at this time. ASSESSMENT: Denies recent travel and known Covid exposure. Treatment: exam unremarkable CXR to r/o PNA dispo to f/u with jboss developer if normal CXR 08/27/19 15:44 CXR shows sig b/l lungs infiltrate pt will be transferred to [facility] for f/u management case discussed with Dr. Wise Discharge Disposition - Diagnosis Acute dyspnea, H/O sarcoidosis - Discharge Dispostion Condition at time of disposition: Stable Decision to Admit order: No - Referrals - Patient Instructions - Post Discharge Activity
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
[2019-08-27] MEDS ORDERED: ACETAMINOPHEN 1000 MG/100 ML VIAL (NON FORMULARY) IVPB ONE (17:33)
[2019-08-27] MEDS ORDERED: CYCLOBENZAPRINE HCL 5 MG TABLET PO ONE (17:45)
[2019-08-27] MEDS ORDERED: ACETAMINOPHEN INJECTION 100 ML IVPB ONE (17:48)
[2019-08-27] MEDS ORDERED: CYCLOBENZAPRINE HCL 10 MG TABLET (FP) ONE (17:48)
[2019-08-27 18:28] VITALS: BP 139/89; PULSE 76
[2019-08-27 18:32] LABS: BASO % 0.4 % (0-2.0); EOS % 0.4 % (0-4.5); HEMATOCRIT 47.7 % (35.4-49); HEMOGLOBIN 16.1 GM/dL (11.7-16.9); LYMPH % 21.6 % (8-40); MCH 29.3 pg (25.7-33.7); MCHC 33.8 g/dl (32.0-35.9); MEAN CELL VOLUME 86.7 fl (80-96); MEAN PLT VOLUME 10.5 fl (7.5-11.1); MONO % 14.3 % (3.8-10.2); NEUT % 63.3 % (42.8-82.8); PLATELET COUNT 136 K/MM3 (134-434); RDW 15.1 % (11.9-15.9); WHITE BLOOD COUNT 4.6 K/mm3 (4.0-10.0)
[2019-08-27 18:53] LABS: ALBUMIN 3.5 g/dl (3.4-5.0); BILIRUBIN,TOTAL 0.4 mg/dL (0.2-1); BLOOD UREA NITROGEN 23.8 mg/dL (7-18); CALCIUM 9.3 mg/dL (8.5-10.1); CREATININE 2.1 mg/dL (0.55-1.3); POTASSIUM 4.6 mmol/L (3.5-5.1); TOT PROT 7.9 g/dl (6.4-8.2)
== END 2019-08-27 19:52 | disposition home or self-care (01) ==
LOC: JER 14:23
PROC: 3E0333Z Introduction of Anti-inflammatory into Peripheral Vein, Percutaneous Approach (ICD-10-PCS; principal; 2019-08-27)
DX: M54.5 Low back pain (principal); D86.9 Sarcoidosis, unspecified; U07.1 COVID-19
CPT/HCPCS: 36415; 71045-TC-FY; 71250-TC; 80053; 85025; 99284-25; J0131; U0003

== ENCOUNTER 2020-01-04 20:31 | Inpatient (IN) | payer OTHER ==
[2020-01-04 20:40] VITALS: BP 122/71; PULSE 64; TEMP 97.8; BMI 25.1
[2020-01-04 22:20] LABS: BASO % 0.7 % (0-2.0); EOS % 1.3 % (0-4.5); HEMATOCRIT 46.4 % (35.4-49); HEMOGLOBIN 14.9 GM/dL (11.7-16.9); LYMPH % 14.3 % (8-40); MCH 28.5 pg (25.7-33.7); MCHC 32.2 g/dl (32.0-35.9); MEAN CELL VOLUME 88.6 fl (80-96); MEAN PLT VOLUME 10.4 fl (7.5-11.1); NEUT % 75.7 % (42.8-82.8); PLATELET COUNT 172 K/MM3 (134-434); RBC 5.24 M/mm3 (4.00-5.60); RDW 14.9 % (11.9-15.9); WHITE BLOOD COUNT 8.8 K/mm3 (4.0-10.0)
[2020-01-04 22:27] LABS: INR 0.91 (0.83-1.09)
[2020-01-04 22:28] LABS: CHLORIDE 104 mmol/L (98-107); POTASSIUM 4.1 mmol/L (3.5-5.1); SODIUM 140 mmol/L (136-145)
[2020-01-04 22:30] LABS: ALBUMIN 3.4 g/dl (3.4-5.0); ANION GAP 4 MMOL/L (8-16); CALCIUM 9.3 mg/dL (8.5-10.1); CO2 31 mmol/L (21-32); GLUCOSE,RANDOM 102 mg/dL (74-106)
[2020-01-04 22:35] LABS: BILIRUBIN,TOTAL 0.3 mg/dL (0.2-1); SGOT/AST 16 U/L (15-37); SGPT/ALT 30 U/L (13-61); TOT PROT 7.4 g/dl (6.4-8.2)
[2020-01-04 22:36] LABS: ALK PHOS 101 U/L (45-117)
== END 2020-01-05 02:35 | disposition left against medical advice (07) | DRG 204 ==
LOC: JER 20:31 → JERBED 01-05 02:25
PROVIDERS: ADMIT Internal Medicine; ATTEND Internal Medicine
DX: R55 Syncope and collapse (principal); D86.9 Sarcoidosis, unspecified; I12.9 Hypertensive chronic kidney disease with stage 1 through stage 4 chronic kidney disease, or unspecified chronic kidney disease; N18.9 Chronic kidney disease, unspecified; Z86.19 Personal history of other infectious and parasitic diseases; M54.9 Dorsalgia, unspecified
CPT/HCPCS: 36415; 70450-TC; 71045-TC-FY; 80053; 82550; 84484; 85025; 85610; 85730; 93005; 93010; 99285-25; C9803; U0003

== ENCOUNTER 2021-04-15 08:54 | Emergency (ER) | payer OTHER ==
[2021-04-15 09:05] VITALS: BP 137/74; PULSE 65; TEMP 97.9; BMI 25.1
== END 2021-04-15 10:43 | disposition home or self-care (01) ==
LOC: JERFT 08:54
DX: L02.412 Cutaneous abscess of left axilla (principal)
CPT/HCPCS: 82962; 99283-25

== ENCOUNTER 2021-04-18 10:04 | Emergency (ER) | payer OTHER ==
[2021-04-18 10:26] VITALS: BP 133/66; PULSE 64; TEMP 97.8; BMI 25.1
== END 2021-04-18 10:55 | disposition home or self-care (01) ==
LOC: JER 10:04
DX: L02.412 Cutaneous abscess of left axilla (principal)
CPT/HCPCS: 99283-25

== ENCOUNTER 2021-07-18 14:19 | Emergency (ER) | payer OTHER ==
[2021-07-18 14:28] VITALS: TEMP 97.9; BMI 23.7
[2021-07-18] MEDS ORDERED: ACETAMINOPHEN 500 MG TABLET (FP) PO ONE (14:48)
[2021-07-18] MEDS ORDERED: DIPHTH,PERTUSS(ACELL),TET 0.5 ML DISP.SYRIN IM ONE ×2 (14:48→14:52)
[2021-07-18] MEDS ORDERED: ACETAMINOPHEN 325 MG TABLET (FP) ONE (14:52)
[2021-07-18] MEDS ORDERED: CEFAZOLIN 2 GM in DEXTROSE 5%-WATER - 50 ML IVPB ONE (15:06)
[2021-07-18] MEDS ORDERED: ceFAZolin SODIUM 1 GM VIAL ONE (15:57)
[2021-07-18] MEDS ORDERED: CEFAZOLIN 2 GM in DEXTROSE 5%-WATER - 100 ML IVPB ONE (17:00)
[2021-07-18 17:04] LABS: BASO % 0.7 % (0-2.0); EOS % 1.2 % (0-4.5); HEMATOCRIT 42.2 % (35.4-49); HEMOGLOBIN 14.4 GM/dL (11.7-16.9); LYMPH % 7.9 % (8-40); MCH 29.2 pg (25.7-33.7); MCHC 34.1 g/dl (32.0-35.9); MEAN CELL VOLUME 85.7 fl (80-96); MEAN PLT VOLUME 10.2 fl (7.5-11.1); MONO % 11.4 % (3.8-10.2); NEUT % 78.8 % (42.8-82.8); PLATELET COUNT 163 10^3/uL (134-434); RBC 4.92 M/mm3 (4.00-5.60); RDW 14.1 % (11.9-15.9); WHITE BLOOD COUNT 6.4 K/mm3 (4.0-10.0)
[2021-07-18 17:10] LABS: INR 1.04 (0.83-1.09)
[2021-07-18 17:12] LABS: ACTIVATED PTT 30.5 SECONDS (25.2-36.5)
[2021-07-18 17:24] LABS: ALBUMIN 3.5 g/dl (3.4-5.0); BLOOD UREA NITROGEN 25.8 mg/dL (7-18); CALCIUM 9.7 mg/dL (8.5-10.1)
[2021-07-18 17:27] LABS: CREATININE 1.8 mg/dL (0.55-1.3)
[2021-07-18 17:28] LABS: BILIRUBIN,TOTAL 0.6 mg/dL (0.2-1); TOT PROT 8.4 g/dl (6.4-8.2)
[2021-07-18 18:39] VITALS: PULSE 75
[2021-07-18 18:46] VITALS: BP 147/85
== END 2021-07-18 18:50 | disposition short-term general hospital (02) ==
LOC: JER 14:19
PROC: 3E03329 Introduction of Other Anti-infective into Peripheral Vein, Percutaneous Approach (ICD-10-PCS; principal; 2021-07-18)
PROC: 3E033NZ Introduction of Analgesics, Hypnotics, Sedatives into Peripheral Vein, Percutaneous Approach (ICD-10-PCS; 2021-07-18)
PROC: 3E033NZ Introduction of Analgesics, Hypnotics, Sedatives into Peripheral Vein, Percutaneous Approach (ICD-10-PCS; 2021-07-18)
PROC: 3E0234Z Introduction of Serum, Toxoid and Vaccine into Muscle, Percutaneous Approach (ICD-10-PCS; 2021-07-18)
DX: S62.522B Displaced fracture of distal phalanx of left thumb, initial encounter for open fracture (principal); W10.9XXA Fall (on) (from) unspecified stairs and steps, initial encounter
CPT/HCPCS: 36415; 72128-TC; 72131-TC; 72170-TC-FY; 73130-TC-LT-FY; 73502-TC-RT-FY; 80053; 85025; 85610; 85730; 86850; 86900; 86901; 90471; 90715; 96374; 96375; 96376; 99285-25; C9803-CS; U0003; U0005

== ENCOUNTER 2021-08-04 09:42 | Inpatient (IN) | payer OTHER ==
[2021-08-04] MEDS ORDERED: SODIUM CHLORIDE 0.9% 500 ML INFUS.BAG IV ONE (11:38)
[2021-08-04] MEDS ORDERED: ONDANSETRON 4 MG/2 ML VIAL IVPUSH ONE (11:42)
[2021-08-04] MEDS ORDERED: FAMOTIDINE 20 MG/50 ML IVPB 20 MG/50 ML MG IVPB ONE ×2 (11:42→12:07)
[2021-08-04] MEDS ORDERED: KETOROLAC TROMETHAMINE 30 MG/1 ML VIAL IVPUSH ONE (11:51)
[2021-08-04] MEDS ORDERED: ONDANSETRON 4 MG/2 ML VIAL ONE (12:07)
[2021-08-04] MEDS ORDERED: KETOROLAC TROMETHAMINE 30 MG/1 ML VIAL ONE (12:07)
[2021-08-04] MEDS ORDERED: morphine CARPU-JECT 4 MG/1 ML DISP.SYRIN IVPUSH ONE (12:13)
[2021-08-04 12:45] LABS: EOS % 1.6 % (0-4.5); HEMOGLOBIN 14.6 GM/dL (11.7-16.9); LYMPH % 11.2 % (8-40); MCH 28.5 pg (25.7-33.7); MCHC 33.1 g/dl (32.0-35.9); MEAN CELL VOLUME 86.1 fl (80-96); MEAN PLT VOLUME 10.5 fl (7.5-11.1); MONO % 9.8 % (3.8-10.2); NEUT % 76.4 % (42.8-82.8); PLATELET COUNT 214 10^3/uL (134-434); RBC 5.11 M/mm3 (4.00-5.60); RDW 13.8 % (11.9-15.9); WHITE BLOOD COUNT 8.5 K/mm3 (4.0-10.0)
[2021-08-04 13:37] LABS: CHLORIDE 100 mmol/L (98-107); SODIUM 137 mmol/L (136-145)
[2021-08-04 13:39] LABS: GLUCOSE,RANDOM 102 mg/dL (74-106)
[2021-08-04 13:40] LABS: ALBUMIN 3.8 g/dl (3.4-5.0); ANION GAP 5 MMOL/L (8-16); BLOOD UREA NITROGEN 29.7 mg/dL (7-18); CO2 32 mmol/L (21-32); LIPASE 142 U/L (73-393)
[2021-08-04 13:43] LABS: SGOT/AST 20 U/L (15-37); SGPT/ALT 25 U/L (13-61)
[2021-08-04 13:44] LABS: BILIRUBIN,TOTAL 0.7 mg/dL (0.2-1)
[2021-08-04 13:45] LABS: TOT PROT 9.3 g/dl (6.4-8.2)
[2021-08-04 13:46] LABS: ALK PHOS 138 U/L (45-117)
[2021-08-04] MEDS ORDERED: morphine SULFATE 4 MG/ML VIAL ONE (13:49)
[2021-08-04 14:00] LABS: CALCIUM 15.6 mg/dL (8.5-10.1)
[2021-08-04] MEDS ORDERED: ASPIRIN 325 MG TABLET PO ONE (14:17)
[2021-08-04] MEDS ORDERED: ASPIRIN 325 MG TABLET ONE (14:39)
[2021-08-04 16:21] LABS: CALCIUM 14.4 mg/dL (8.5-10.1)
[2021-08-04] MEDS ORDERED: SODIUM CHLORIDE 1,000 ML IV STA (17:10)
[2021-08-04 17:57] LABS: URINE APPEARANCE CLOUDY; URINE BILIRUBIN NEGATIVE (NEGATIVE); URINE COLOR YELLOW; URINE GLUCOSE (UA) NEGATIVE (NEGATIVE); URINE KETONE NEGATIVE (NEGATIVE); URINE LEUK ESTERASE NEGATIVE (NEGATIVE); URINE NITRITE NEGATIVE (NEGATIVE); URINE PROTEIN TRACE (NEGATIVE); URINE UROBILINOGEN 0.2 mg/dL (0.2-1.0)
[2021-08-04] MEDS: CALCITONIN - SALMON SYNTHETIC 400 UNIT/2 ML VIAL IM SCH (19:14)
[2021-08-04] MEDS: SODIUM CHLORIDE 1,000 ML IV SCH (21:51)
[2021-08-04] MEDS: HEPARIN NA (PORCINE) 5,000 UNITS/ML 1ML VIAL SQ SCH (21:51)
[2021-08-04] MEDS ORDERED: HEPARIN NA (PORCINE) 5,000 UNITS/ML 1ML VIAL ONE (21:52)
[2021-08-04 22:50] VITALS: BMI 23.1
[2021-08-05] MEDS: CALCITONIN - SALMON SYNTHETIC 400 UNIT/2 ML VIAL IM SCH (06:13)
[2021-08-05] MEDS: HEPARIN NA (PORCINE) 5,000 UNITS/ML 1ML VIAL SQ SCH ×3 (06:13→21:54)
[2021-08-05 07:13] LABS: BASO % 1.1 % (0-2.0); EOS % 2.8 % (0-4.5); HEMATOCRIT 36.2 % (35.4-49); HEMOGLOBIN 12.3 GM/dL (11.7-16.9); LYMPH % 15.3 % (8-40); MCH 29.1 pg (25.7-33.7); MEAN CELL VOLUME 85.6 fl (80-96); MEAN PLT VOLUME 10.6 fl (7.5-11.1); MONO % 9.5 % (3.8-10.2); NEUT % 71.3 % (42.8-82.8); PLATELET COUNT 167 10^3/uL (134-434); RBC 4.23 M/mm3 (4.00-5.60); RDW 13.9 % (11.9-15.9)
[2021-08-05 07:33] LABS: BLOOD UREA NITROGEN 35.3 mg/dL (7-18); MAGNESIUM 1.7 mg/dL (1.8-2.4)
[2021-08-05 07:36] LABS: CREATININE 2.8 mg/dL (0.55-1.3); PHOSPHOROUS 3.4 mg/dL (2.5-4.9)
[2021-08-05 07:38] LABS: BILIRUBIN,TOTAL 0.6 mg/dL (0.2-1)
[2021-08-05 07:55] LABS: ALBUMIN 2.7 g/dl (3.4-5.0); CALCIUM 11.6 mg/dL (8.5-10.1)
[2021-08-05] MEDS: SODIUM CHLORIDE 1,000 ML IV SCH ×2 (09:01→21:06)
[2021-08-05] MEDS: ACETAMINOPHEN 1000 MG/100 ML BAG IVPB PRN ×2 (09:02→21:54)
[2021-08-05] MEDS: ASPIRIN COATED 81 MG TABLET.EC PO SCH (11:04)
[2021-08-06] MEDS: ACETAMINOPHEN 1000 MG/100 ML BAG IVPB PRN (04:00)
[2021-08-06] MEDS: HEPARIN NA (PORCINE) 5,000 UNITS/ML 1ML VIAL SQ SCH ×3 (06:24→21:14)
[2021-08-06 08:06] LABS: PARATHYROID HORM INTACT 7 pg/mL (15-65)
[2021-08-06] MEDS: ASPIRIN COATED 81 MG TABLET.EC PO SCH (09:42)
[2021-08-06] MEDS: PANTOPRAZOLE 40 MG TABLET PO SCH (11:07)
[2021-08-06] MEDS: POLYETHYLENE GLYCOL (HEALTHYLAX) 3350 17 GM PACKET PO SCH ×2 (13:34→21:15)
[2021-08-06 13:58] LABS: BLOOD UREA NITROGEN 30.3 mg/dL (7-18)
[2021-08-06 14:02] LABS: CREATININE 2.3 mg/dL (0.55-1.3)
[2021-08-06 14:06] LABS: N-TERMINAL BNP 843.9 pg/ml (5-125)
[2021-08-06] MEDS: SODIUM CHLORIDE 1,000 ML IV SCH (17:36)
[2021-08-06] MEDS ORDERED: ACETAMINOPHEN 325 MG TABLET (FP) PO PRN (17:57)
[2021-08-06] MEDS ORDERED: ACETAMINOPHEN 1000 MG/100 ML BAG IVPB PRN (21:27)
[2021-08-06 22:50] LABS: CALCIUM 12.5 mg/dL (8.5-10.1)
[2021-08-06 22:51] LABS: BLOOD UREA NITROGEN 27.4 mg/dL (7-18); MAGNESIUM 1.6 mg/dL (1.8-2.4)
[2021-08-06 22:54] LABS: CREATININE 2.3 mg/dL (0.55-1.3)
[2021-08-06] MEDS ORDERED: predniSONE 20 MG TABLET (UD) PO SCH (23:30)
[2021-08-07] MEDS: POLYETHYLENE GLYCOL (HEALTHYLAX) 3350 17 GM PACKET PO SCH ×3 (05:21→21:16)
[2021-08-07] MEDS: HEPARIN NA (PORCINE) 5,000 UNITS/ML 1ML VIAL SQ SCH ×3 (06:24→21:16)
[2021-08-07 08:07] LABS: BASO % 0.3 % (0-2.0); EOS % 0.2 % (0-4.5); HEMATOCRIT 42.5 % (35.4-49); HEMOGLOBIN 14.3 GM/dL (11.7-16.9); LYMPH % 11.9 % (8-40); MCH 28.9 pg (25.7-33.7); MCHC 33.6 g/dl (32.0-35.9); MEAN CELL VOLUME 86.2 fl (80-96); MEAN PLT VOLUME 11.7 fl (7.5-11.1); MONO % 1.1 % (3.8-10.2); NEUT % 86.5 % (42.8-82.8); PLATELET COUNT 209 10^3/uL (134-434); RBC 4.93 M/mm3 (4.00-5.60); WHITE BLOOD COUNT 5.5 K/mm3 (4.0-10.0)
[2021-08-07 08:25] LABS: BLOOD UREA NITROGEN 26.9 mg/dL (7-18); CALCIUM 13.3 mg/dL (8.5-10.1)
[2021-08-07 08:27] LABS: CREATININE 2.4 mg/dL (0.55-1.3)
[2021-08-07 08:29] LABS: BILIRUBIN,TOTAL 0.6 mg/dL (0.2-1); BLOOD UREA NITROGEN 27.9 mg/dL (7-18); CALCIUM 13.7 mg/dL (8.5-10.1); MAGNESIUM 1.7 mg/dL (1.8-2.4); TOT PROT 8.6 g/dl (6.4-8.2)
[2021-08-07 08:31] LABS: CREATININE 2.4 mg/dL (0.55-1.3); URIC ACID 7.3 mg/dL (2.6-7.2)
[2021-08-07 08:33] LABS: ALBUMIN 3.5 g/dl (3.4-5.0); PHOSPHOROUS 3.9 mg/dL (2.5-4.9)
[2021-08-07 10:18] LABS: URIC ACID 7.2 mg/dL (2.6-7.2)
[2021-08-07] MEDS: ASPIRIN COATED 81 MG TABLET.EC PO SCH ×2 (13:25→15:02)
[2021-08-07] MEDS: PANTOPRAZOLE 40 MG TABLET PO SCH ×2 (13:25→15:01)
[2021-08-07] MEDS: predniSONE 20 MG TABLET (UD) PO SCH (18:19)
[2021-08-08] MEDS: POLYETHYLENE GLYCOL (HEALTHYLAX) 3350 17 GM PACKET PO SCH (06:12)
[2021-08-08] MEDS: HEPARIN NA (PORCINE) 5,000 UNITS/ML 1ML VIAL SQ SCH ×3 (06:12→22:11)
[2021-08-08 07:20] LABS: ALBUMIN 3.1 g/dl (3.4-5.0); BLOOD UREA NITROGEN 35.7 mg/dL (7-18); CALCIUM 13.8 mg/dL (8.5-10.1)
[2021-08-08 07:23] LABS: CREATININE 2.5 mg/dL (0.55-1.3)
[2021-08-08 07:26] LABS: BILIRUBIN,TOTAL 0.4 mg/dL (0.2-1); TOT PROT 7.4 g/dl (6.4-8.2)
[2021-08-08] MEDS: ASPIRIN COATED 81 MG TABLET.EC PO SCH (09:22)
[2021-08-08] MEDS: predniSONE 20 MG TABLET (UD) PO SCH (09:22)
[2021-08-08] MEDS: PANTOPRAZOLE 40 MG TABLET PO SCH (09:26)
[2021-08-08] MEDS: SODIUM CHLORIDE 1,000 ML IV SCH ×2 (10:58→19:30)
[2021-08-08] MEDS ORDERED: FUROSEMIDE 40 MG TABLET (FP) PO ONE (11:00)
[2021-08-08 18:09] LABS: FREE KAPPA,SERUM 79.9 mg/L (3.3-19.4)
[2021-08-09] MEDS: SODIUM CHLORIDE 1,000 ML IV SCH ×2 (02:18→22:18)
[2021-08-09] MEDS: HEPARIN NA (PORCINE) 5,000 UNITS/ML 1ML VIAL SQ SCH ×3 (05:11→22:14)
[2021-08-09 07:38] LABS: ALBUMIN 2.6 g/dl (3.4-5.0); BLOOD UREA NITROGEN 37.5 mg/dL (7-18)
[2021-08-09 07:40] LABS: BILIRUBIN,TOTAL 0.2 mg/dL (0.2-1); CREATININE 2.5 mg/dL (0.55-1.3)
[2021-08-09 07:42] LABS: TOT PROT 6.5 g/dl (6.4-8.2)
[2021-08-09 07:47] LABS: CALCIUM 11.4 mg/dL (8.5-10.1)
[2021-08-09] MEDS: predniSONE 20 MG TABLET (UD) PO SCH (09:32)
[2021-08-09] MEDS: ASPIRIN COATED 81 MG TABLET.EC PO SCH (09:32)
[2021-08-09] MEDS: PANTOPRAZOLE 40 MG TABLET PO SCH (09:32)
[2021-08-09] MEDS ORDERED: FUROSEMIDE 40 MG TABLET (FP) PO ONE (11:40)
[2021-08-09] MEDS ORDERED: POTASSIUM CHLORIDE TABS 20 MEQ TABLET.ER (FP) PO ONE (11:40)
[2021-08-10] MEDS: HEPARIN NA (PORCINE) 5,000 UNITS/ML 1ML VIAL SQ SCH ×3 (06:04→22:17)
[2021-08-10 08:01] LABS: BASO % 0.5 % (0-2.0); EOS % 0.8 % (0-4.5); HEMATOCRIT 35.5 % (35.4-49); HEMOGLOBIN 11.7 GM/dL (11.7-16.9); LYMPH % 17.1 % (8-40); MCH 28.5 pg (25.7-33.7); MEAN CELL VOLUME 86.3 fl (80-96); MEAN PLT VOLUME 11.7 fl (7.5-11.1); MONO % 7.6 % (3.8-10.2); PLATELET COUNT 176 10^3/uL (134-434); RBC 4.11 M/mm3 (4.00-5.60); RDW 13.9 % (11.9-15.9); WHITE BLOOD COUNT 8.8 K/mm3 (4.0-10.0)
[2021-08-10 08:25] LABS: CALCIUM 11.2 mg/dL (8.5-10.1)
[2021-08-10 08:26] LABS: ALBUMIN 2.9 g/dl (3.4-5.0); BLOOD UREA NITROGEN 38.6 mg/dL (7-18)
[2021-08-10 08:29] LABS: CREATININE 2.2 mg/dL (0.55-1.3)
[2021-08-10 08:30] LABS: BILIRUBIN,TOTAL 0.2 mg/dL (0.2-1)
[2021-08-10] MEDS: predniSONE 20 MG TABLET (UD) PO SCH (09:37)
[2021-08-10] MEDS: PANTOPRAZOLE 40 MG TABLET PO SCH (09:37)
[2021-08-10] MEDS: ASPIRIN COATED 81 MG TABLET.EC PO SCH (09:37)
[2021-08-10 11:07] LABS: ANTIGLOMERULAR BASEMENT MEN.AB 3 units (0-20)
[2021-08-10] MEDS ORDERED: FUROSEMIDE 40 MG TABLET (FP) PO ONE (12:00)
[2021-08-10] MEDS: SODIUM CHLORIDE 1,000 ML IV SCH ×2 (13:08→20:00)
[2021-08-10 16:07] LABS: ATYPICAL pANCA <1:20 titer (Neg:<1:20); C-ANCA <1:20 titer (Neg:<1:20)
[2021-08-11] MEDS: HEPARIN NA (PORCINE) 5,000 UNITS/ML 1ML VIAL SQ SCH ×2 (06:20→15:00)
[2021-08-11 07:24] LABS: CALCIUM 10.3 mg/dL (8.5-10.1)
[2021-08-11 07:25] LABS: ALBUMIN 2.8 g/dl (3.4-5.0); BLOOD UREA NITROGEN 41.4 mg/dL (7-18)
[2021-08-11 07:28] LABS: CREATININE 2.2 mg/dL (0.55-1.3)
[2021-08-11 07:29] LABS: BILIRUBIN,TOTAL 0.3 mg/dL (0.2-1); TOT PROT 6.8 g/dl (6.4-8.2)
[2021-08-11] MEDS: PANTOPRAZOLE 40 MG TABLET PO SCH (09:43)
[2021-08-11] MEDS: predniSONE 20 MG TABLET (UD) PO SCH (09:43)
[2021-08-11] MEDS: ASPIRIN COATED 81 MG TABLET.EC PO SCH (09:43)
[2021-08-11] MEDS ORDERED: POTASSIUM CHLORIDE TABS 20 MEQ TABLET.ER (FP) PO ONE (14:14)
[2021-08-11] MEDS ORDERED: FUROSEMIDE 20 MG TABLET (FP) PO ONE (14:15)
[2021-08-11] MEDS: SODIUM CHLORIDE 1,000 ML IV SCH (14:59)
[2021-08-11 20:12] LABS: MAGNESIUM 1.4 mg/dL (1.8-2.4)
[2021-08-12 07:47] LABS: ALBUMIN 2.8 g/dl (3.4-5.0); BLOOD UREA NITROGEN 35.2 mg/dL (7-18); CALCIUM 10.4 mg/dL (8.5-10.1)
[2021-08-12 07:51] LABS: CREATININE 1.9 mg/dL (0.55-1.3)
[2021-08-12 07:52] LABS: BILIRUBIN,TOTAL 0.2 mg/dL (0.2-1); TOT PROT 6.5 g/dl (6.4-8.2)
[2021-08-12] MEDS ORDERED: MAGNESIUM SULF 50% (8.12 MEQ/2 ML-1 GM VIAL) IVPB ONE ×2 (09:06→11:15)
[2021-08-12] MEDS ORDERED: REGADENOSON 0.4 MG/5 ML PRE-FILLED SYRINGE IVPUSH ONE ×2 (09:36→11:15)
[2021-08-12] MEDS: ASPIRIN COATED 81 MG TABLET.EC PO SCH (11:15)
[2021-08-12] MEDS: predniSONE 20 MG TABLET (UD) PO SCH (11:15)
[2021-08-12] MEDS: PANTOPRAZOLE 40 MG TABLET PO SCH (11:15)
[2021-08-12] MEDS: SODIUM CHLORIDE 1,000 ML IV SCH (22:48)
[2021-08-13 02:47] VITALS: TEMP 98.2
[2021-08-13] MEDS ORDERED: ACETAMINOPHEN 1000 MG/100 ML BAG IVPB ONE (04:12)
[2021-08-13 06:03] VITALS: BP 145/71; PULSE 66
[2021-08-13 08:07] LABS: CALCIUM 10.7 mg/dL (8.5-10.1)
[2021-08-13 08:08] LABS: ALBUMIN 3.2 g/dl (3.4-5.0); BLOOD UREA NITROGEN 38.9 mg/dL (7-18)
[2021-08-13 08:11] LABS: CREATININE 1.9 mg/dL (0.55-1.3)
[2021-08-13 08:12] LABS: BILIRUBIN,TOTAL 0.2 mg/dL (0.2-1); TOT PROT 7.4 g/dl (6.4-8.2)
== END 2021-08-13 11:16 | disposition left against medical advice (07) | DRG 469 ==
LOC: JER 09:42 → JERBED 15:40 → J4W 22:21
PROVIDERS: ADMIT Internal Medicine
DX: N17.9 Acute kidney failure, unspecified (principal); E83.52 Hypercalcemia; R07.89 Other chest pain; D86.9 Sarcoidosis, unspecified; I45.2 Bifascicular block; I12.9 Hypertensive chronic kidney disease with stage 1 through stage 4 chronic kidney disease, or unspecified chronic kidney disease; N18.30 Chronic kidney disease, stage 3 unspecified; R63.4 Abnormal weight loss; I24.8 Other forms of acute ischemic heart disease; Z68.23 Body mass index [BMI] 23.0-23.9, adult; R10.13 Epigastric pain; M54.50 Low back pain, unspecified; G89.29 Other chronic pain; G47.00 Insomnia, unspecified; R79.89 Other specified abnormal findings of blood chemistry; R68.81 Early satiety; I35.0 Nonrheumatic aortic (valve) stenosis; R59.1 Generalized enlarged lymph nodes; Z79.1 Long term (current) use of non-steroidal anti-inflammatories (NSAID)
CPT/HCPCS: 0241U-QW; 36415; 71250-TC; 74176-TC; 74240-TC-FY; 76705-TC; 76775-TC; 76856-TC; 76882-TC-RT-FY; 76942-TC; 78452-TC; 80048; 80053; 80061; 81003; 82310; 82436; 82784; 83516; 83520; 83615; 83690; 83735; 83880; 83883; 83970; 84100; 84133; 84155; 84165; 84300; 84443; 84484; 84550; 85025; 86038; 86256; 87899; 88300-TC; 88305-TC; 93005; 93010; 93017; 93306-TC; 99285-25; A9502; J1644; J2785

== ENCOUNTER 2023-02-22 04:11 | Day surgery (SDC) | payer OTHER ==
[2023-01-24 12:42] VITALS: BMI 25.1
[2023-02-22 09:19] VITALS: RESP 20
[2023-02-22] MEDS ORDERED: MIDAZOLAM HCL 2 MG/2 ML SINGLE DOSE VIAL ONE ×2 (10:14→10:24)
[2023-02-22] MEDS ORDERED: ceFAZolin SODIUM 1 GM VIAL ONE (10:19)
[2023-02-22] MEDS ORDERED: ONDANSETRON 4 MG/2 ML VIAL ONE (10:19)
[2023-02-22] MEDS ORDERED: ceFAZolin SODIUM 1 GM VIAL IVPB ONE ×2 (10:20→10:32)
[2023-02-22] MEDS ORDERED: PROPOFOL 20 ML ONE (10:24)
[2023-02-22] MEDS ORDERED: ELECTROLYTE-148 SOLN 1,000 ML IV SCH (10:30)
[2023-02-22 13:44] VITALS: BP 114/66; PULSE 18; TEMP 98.5
== END 2023-02-22 12:50 | disposition home or self-care (01) ==
LOC: JASU-SURG 04:11
PROVIDERS: ATTEND Urology
PROC: 0TF3XZZ Fragmentation in Right Kidney Pelvis, External Approach (ICD-10-PCS; principal; 2023-02-22 10:15)
DX: N20.0 Calculus of kidney (principal)

== ENCOUNTER 2023-05-03 05:00 | Day surgery (SDC) | payer OTHER ==
[2023-05-02 14:26] VITALS: BMI 25.1
[2023-05-03 09:06] VITALS: RESP 20
[2023-05-03] MEDS ORDERED: FENTANYL CITRATE/PF 50 MCG/ML VIAL ONE (10:10)
[2023-05-03] MEDS ORDERED: MIDAZOLAM HCL 2 MG/2 ML SINGLE DOSE VIAL ONE (10:10)
[2023-05-03] MEDS: ceFAZolin SODIUM 1 GM VIAL IVPB ONE (10:53)
[2023-05-03] MEDS ORDERED: ELECTROLYTE-148 SOLN 1,000 ML IV SCH (11:45)
[2023-05-03 12:27] VITALS: BP 126/71; PULSE 54; TEMP 97
== END 2023-05-03 12:10 | disposition home or self-care (01) ==
LOC: JASU-SURG 05:00
PROVIDERS: ATTEND Urology
PROC: 0TF6XZZ Fragmentation in Right Ureter, External Approach (ICD-10-PCS; principal; 2023-05-03 11:00)
DX: N20.1 Calculus of ureter (principal)

== ENCOUNTER 2023-05-26 18:48 | Emergency (ER) | payer OTHER ==
[2023-05-26 18:53] VITALS: BP 181/80; PULSE 79; RESP 20; TEMP 98; BMI 25.1
== END 2023-05-26 20:19 | disposition left against medical advice (07) ==
LOC: JER 18:48
DX: Z53.9 Procedure and treatment not carried out, unspecified reason (principal)
CPT/HCPCS: 99281-25

== ENCOUNTER 2024-01-04 14:27 | Observation (INO) | payer OTHER ==
[2024-01-04 14:32] VITALS: BMI 25.1
[2024-01-04] MEDS ORDERED: FAMOTIDINE 20 MG TABLET ONE (16:16)
[2024-01-04] MEDS ORDERED: ASPIRIN 81 MG CHEWABLE TABLETS ONE (16:16)
[2024-01-04] MEDS ORDERED: MAG HYDROX/AL HYDROX/SIMETH 30 ML UNIT-DOSE CUP ONE (16:17)
[2024-01-04] MEDS ORDERED: ONDANSETRON 4 MG/2 ML VIAL ONE (16:17)
[2024-01-04] MEDS ORDERED: ACETAMINOPHEN 500 MG TABLET (FP) ONE (16:18)
[2024-01-04 16:19] LABS: BASO % 1.4 % (0-2.0); EOS % 3.1 % (0-4.5); HEMATOCRIT 45.7 % (35.4-49); HEMOGLOBIN 15.1 GM/dL (11.7-16.9); LYMPH % 17.7 % (8-40); MCH 28.4 pg (25.7-33.7); MEAN CELL VOLUME 86.1 fl (80-96); MEAN PLT VOLUME 9.5 fl (7.5-11.1); MONO % 10.1 % (3.8-10.2); NEUT % 67.7 % (42.8-82.8); PLATELET COUNT 165 10^3/uL (134-434); RBC 5.31 M/mm3 (4.00-5.60); WHITE BLOOD COUNT 4.9 K/mm3 (4.0-10.0)
[2024-01-04] MEDS: FAMOTIDINE 20 MG TABLET PO ONE (16:28)
[2024-01-04] MEDS: MAG HYDROX/AL HYDROX/SIMETH 30 ML UNIT-DOSE CUP PO ONE (16:28)
[2024-01-04] MEDS: ACETAMINOPHEN 500 MG TABLET (FP) PO ONE (16:28)
[2024-01-04] MEDS: ONDANSETRON 4 MG/2 ML VIAL IVPUSH ONE (16:29)
[2024-01-04] MEDS: ASPIRIN 81 MG CHEWABLE TABLETS PO ONE (16:29)
[2024-01-04 16:31] LABS: INR 0.96 (0.83-1.09)
[2024-01-04 16:34] LABS: ACTIVATED PTT 32.8 SECONDS (25.2-36.5)
[2024-01-04 16:41] LABS: POTASSIUM 4.2 mmol/L (3.5-5.1)
[2024-01-04 16:43] LABS: ALBUMIN 3.4 g/dl (3.4-5.0); BLOOD UREA NITROGEN 30.2 mg/dL (7-18); CALCIUM 11.6 mg/dL (8.5-10.1); MAGNESIUM 1.9 mg/dL (1.8-2.4)
[2024-01-04 16:46] LABS: CREATININE 2.1 mg/dL (0.55-1.3)
[2024-01-04 16:48] LABS: BILIRUBIN,TOTAL 0.5 mg/dL (0.2-1); TOT PROT 7.6 g/dl (6.4-8.2)
[2024-01-04] MEDS: SODIUM CHLORIDE 0.9% 500 ML INFUS.BAG IV ONE (17:44)
[2024-01-04] MEDS ORDERED: HEPARIN NA (PORCINE) 5,000 UNITS/ML 1ML VIAL ONE (22:16)
[2024-01-04] MEDS: HEPARIN NA (PORCINE) 5,000 UNITS/ML 1ML VIAL SQ SCH (22:16)
[2024-01-05 00:54] LABS: HIV INTERPRETATION NEGATIVE (NEGATIVE)
[2024-01-05] MEDS: ACETAMINOPHEN 1000 MG/100 ML BAG IVPB ONE (06:26)
[2024-01-05 07:58] LABS: MCH 28.4 pg (25.7-33.7); MCHC 32.6 g/dl (32.0-35.9); MEAN CELL VOLUME 87.2 fl (80-96); MEAN PLT VOLUME 10.2 fl (7.5-11.1); PLATELET COUNT 151 10^3/uL (134-434); RBC 4.93 M/mm3 (4.00-5.60); RDW 14.1 % (11.9-15.9); WHITE BLOOD COUNT 4.9 K/mm3 (4.0-10.0)
[2024-01-05 08:16] LABS: CALCIUM 10.8 mg/dL (8.5-10.1)
[2024-01-05 08:17] LABS: ALBUMIN 3.1 g/dl (3.4-5.0); BLOOD UREA NITROGEN 27.9 mg/dL (7-18); MAGNESIUM 1.9 mg/dL (1.8-2.4)
[2024-01-05 08:20] LABS: CREATININE 2.1 mg/dL (0.55-1.3); PHOSPHOROUS 3.2 mg/dL (2.5-4.9)
[2024-01-05 08:21] LABS: BILIRUBIN,TOTAL 0.6 mg/dL (0.2-1)
[2024-01-05 08:22] LABS: CHOLESTEROL 184 mg/dL (50-200); TOT PROT 6.7 g/dl (6.4-8.2)
[2024-01-05 08:23] LABS: LDL CHOLESTEROL (ONLY SJRH) 105 mg/dL (5-100)
[2024-01-05 08:25] LABS: HDL CHOLESTEROL 38 mg/dL (40-60)
[2024-01-05 08:48] LABS: EPI CELLS 11 /uL (0-25.1); HYALINE CASTS 2 /uL (0-3.1); URINE APPEARANCE CLEAR; URINE BACTERIA 22 /uL (0-1359); URINE BILIRUBIN NEGATIVE (NEGATIVE); URINE COLOR YELLOW; URINE GLUCOSE (UA) NEGATIVE (NEGATIVE); URINE KETONE NEGATIVE (NEGATIVE); URINE LEUK ESTERASE TRACE (NEGATIVE); URINE NITRITE NEGATIVE (NEGATIVE); URINE PROTEIN NEGATIVE (NEGATIVE); URINE RBC 30 /uL (0-23.9); URINE UROBILINOGEN 0.2 mg/dL (0.2-1.0); URINE WBC 44 /uL (0-25.8)
[2024-01-05] MEDS: ASPIRIN 81 MG CHEWABLE TABLETS PO SCH (10:10)
[2024-01-05] MEDS: ACETAMINOPHEN 325 MG TABLET (FP) PO PRN (21:47)
[2024-01-05] MEDS: ATORVASTATIN CA 80 MG TABLET (FP) PO SCH (21:47)
[2024-01-06] MEDS ORDERED: amLODIPine BESYLATE 10 MG TABLET (FP) PO SCH (10:00)
[2024-01-06] MEDS: amLODIPine BESYLATE 5 MG TABLET (FP) PO SCH (10:13)
[2024-01-06 10:36] LABS: CALCIUM 11.3 mg/dL (8.5-10.1)
[2024-01-06 10:37] LABS: MAGNESIUM 1.9 mg/dL (1.8-2.4)
[2024-01-06 10:40] LABS: CREATININE 2.2 mg/dL (0.55-1.3); PHOSPHOROUS 2.6 mg/dL (2.5-4.9)
[2024-01-06 11:00] VITALS: BP 167/77; PULSE 76; RESP 17; TEMP 97.7
[2024-01-06 11:03] LABS: HEMOGLOBIN 15.4 GM/dL (11.7-16.9); MCH 29.1 pg (25.7-33.7); MCHC 33.5 g/dl (32.0-35.9); MEAN PLT VOLUME 10.7 fl (7.5-11.1); PLATELET COUNT 154 10^3/uL (134-434); RBC 5.29 M/mm3 (4.00-5.60); RDW 14.1 % (11.9-15.9); WHITE BLOOD COUNT 5.1 K/mm3 (4.0-10.0)
== END 2024-01-06 14:29 | disposition home or self-care (01) ==
LOC: JER 14:27 → JERBED 17:40 → J4S 23:31
PROVIDERS: ADMIT Internal Medicine; ATTEND Internal Medicine
PROC: 3E033NZ Introduction of Analgesics, Hypnotics, Sedatives into Peripheral Vein, Percutaneous Approach (ICD-10-PCS; principal; 2024-01-04)
PROC: 3E033GC Introduction of Other Therapeutic Substance into Peripheral Vein, Percutaneous Approach (ICD-10-PCS; 2024-01-04)
PROC: 3E0337Z Introduction of Electrolytic and Water Balance Substance into Peripheral Vein, Percutaneous Approach (ICD-10-PCS; 2024-01-04)
DX: N17.9 Acute kidney failure, unspecified (principal); E83.52 Hypercalcemia; R79.89 Other specified abnormal findings of blood chemistry; I44.7 Left bundle-branch block, unspecified; D86.9 Sarcoidosis, unspecified; I12.9 Hypertensive chronic kidney disease with stage 1 through stage 4 chronic kidney disease, or unspecified chronic kidney disease; N18.9 Chronic kidney disease, unspecified; K21.9 Gastro-esophageal reflux disease without esophagitis
CPT/HCPCS: 0241U-QW; 36415; 71045-TC-FY; 76775-TC; 80048; 80053; 80061; 81003; 82550; 83735; 84100; 84443; 84484; 85025; 85027; 85610; 85651; 85730; 86140; 86803; 87389; 93005; 93010; 93306-TC; 96374; 96375; 99285-25; G0378; J0131; J1644

== ENCOUNTER 2024-02-01 19:40 | Observation (INO) | payer OTHER ==
[2024-02-01 19:48] VITALS: RESP 18
[2024-02-01 20:56] LABS: EPI CELLS 4 /uL (0-25.1); HYALINE CASTS 1 /uL (0-3.1); URINE APPEARANCE CLEAR; URINE BACTERIA 14 /uL (0-1359); URINE BILIRUBIN NEGATIVE (NEGATIVE); URINE COLOR YELLOW; URINE GLUCOSE (UA) NEGATIVE (NEGATIVE); URINE KETONE NEGATIVE (NEGATIVE); URINE LEUK ESTERASE TRACE (NEGATIVE); URINE NITRITE NEGATIVE (NEGATIVE); URINE PROTEIN NEGATIVE (NEGATIVE); URINE RBC 9 /uL (0-23.9); URINE UROBILINOGEN 0.2 mg/dL (0.2-1.0); URINE WBC 28 /uL (0-25.8)
[2024-02-01 21:24] LABS: ALBUMIN 3.4 g/dl (3.4-5.0); BLOOD UREA NITROGEN 31.9 mg/dL (7-18)
[2024-02-01 21:27] LABS: CREATININE 2.9 mg/dL (0.55-1.3)
[2024-02-01 21:28] LABS: BILIRUBIN,TOTAL 0.3 mg/dL (0.2-1)
[2024-02-01 21:29] LABS: TOT PROT 7.4 g/dl (6.4-8.2)
[2024-02-01] MEDS: LACTATED RINGERS SOLUTION 1000 ML INFUS.BAG IV ONE (22:07)
[2024-02-01] MEDS: SODIUM CHLORIDE 1,000 ML IV SCH (23:26)
[2024-02-01] MEDS: SODIUM CHLORIDE 0.9% 500 ML INFUS.BAG IV ONE (23:26)
[2024-02-01 23:47] LABS: BASO % 0.9 % (0-2.0); EOS % 3.2 % (0-4.5); HEMATOCRIT 40.4 % (35.4-49); HEMOGLOBIN 13.1 GM/dL (11.7-16.9); LYMPH % 16.6 % (8-40); MCH 28.2 pg (25.7-33.7); MCHC 32.3 g/dl (32.0-35.9); MEAN CELL VOLUME 87.2 fl (80-96); MEAN PLT VOLUME 11.1 fl (7.5-11.1); MONO % 12.2 % (3.8-10.2); NEUT % 67.1 % (42.8-82.8); PLATELET COUNT 170 10^3/uL (134-434); RBC 4.64 M/mm3 (4.00-5.60); RDW 13.4 % (11.9-15.9); WHITE BLOOD COUNT 5.7 K/mm3 (4.0-10.0)
[2024-02-01 23:48] LABS: MAGNESIUM 1.7 mg/dL (1.8-2.4)
[2024-02-02] MEDS ORDERED: ACETAMINOPHEN 325 MG TABLET (FP) ONE (00:33)
[2024-02-02] MEDS: ACETAMINOPHEN 325 MG TABLET (FP) PO ONE (01:14)
[2024-02-02 04:50] VITALS: BMI 25.2
[2024-02-02] MEDS: MAGNESIUM SULF 50% (8.12 MEQ/2 ML-1 GM VIAL) IVPB ONE (06:09)
[2024-02-02] MEDS: HEPARIN NA (PORCINE) 5,000 UNITS/ML 1ML VIAL SQ SCH (06:10)
[2024-02-02] MEDS: SODIUM CHLORIDE 1,000 ML IV SCH (06:11)
[2024-02-02 08:34] LABS: BASO % 0.9 % (0-2.0); EOS % 3.1 % (0-4.5); HEMOGLOBIN 13.7 GM/dL (11.7-16.9); LYMPH % 17.1 % (8-40); MCH 27.8 pg (25.7-33.7); MCHC 31.8 g/dl (32.0-35.9); MEAN CELL VOLUME 87.2 fl (80-96); MEAN PLT VOLUME 10.1 fl (7.5-11.1); MONO % 11.9 % (3.8-10.2); PLATELET COUNT 161 10^3/uL (134-434); RBC 4.93 M/mm3 (4.00-5.60); RDW 13.3 % (11.9-15.9); WHITE BLOOD COUNT 6.1 K/mm3 (4.0-10.0)
[2024-02-02 09:05] LABS: POTASSIUM 3.9 mmol/L (3.5-5.1)
[2024-02-02 09:07] LABS: ALBUMIN 3.4 g/dl (3.4-5.0); CALCIUM 11.8 mg/dL (8.5-10.1)
[2024-02-02 09:08] LABS: BLOOD UREA NITROGEN 26.5 mg/dL (7-18); MAGNESIUM 2.8 mg/dL (1.8-2.4)
[2024-02-02 09:11] LABS: CREATININE 2.5 mg/dL (0.55-1.3); PHOSPHOROUS 2.9 mg/dL (2.5-4.9)
[2024-02-02 09:12] LABS: BILIRUBIN,TOTAL 0.5 mg/dL (0.2-1)
[2024-02-02] MEDS: ASPIRIN 81 MG CHEWABLE TABLETS PO SCH (09:29)
[2024-02-02] MEDS ORDERED: ENOXAPARIN NA (PORCINE) 40 MG/0.4 ML DISP.SYRIN SQ SCH (10:00)
[2024-02-02 14:32] VITALS: BP 141/77; PULSE 76; TEMP 98.2
[2024-02-02] MEDS ORDERED: ATORVASTATIN CA 80 MG TABLET (FP) PO SCH (22:00)
== END 2024-02-02 16:48 | disposition home or self-care (01) ==
LOC: JER 19:40 → JERBED 02-02 00:07 → J8W 02-02 04:05
PROVIDERS: ADMIT Internal Medicine; ATTEND Nurse Practitioner Family
PROC: 3E033GC Introduction of Other Therapeutic Substance into Peripheral Vein, Percutaneous Approach (ICD-10-PCS; principal; 2024-02-02)
PROC: 3E0337Z Introduction of Electrolytic and Water Balance Substance into Peripheral Vein, Percutaneous Approach (ICD-10-PCS; 2024-02-02)
PROC: 3E013GC Introduction of Other Therapeutic Substance into Subcutaneous Tissue, Percutaneous Approach (ICD-10-PCS; 2024-02-02)
DX: I12.9 Hypertensive chronic kidney disease with stage 1 through stage 4 chronic kidney disease, or unspecified chronic kidney disease (principal); N18.30 Chronic kidney disease, stage 3 unspecified; N17.9 Acute kidney failure, unspecified; I10 Essential (primary) hypertension; E78.5 Hyperlipidemia, unspecified; E83.52 Hypercalcemia; D86.9 Sarcoidosis, unspecified; E83.42 Hypomagnesemia; I44.7 Left bundle-branch block, unspecified; R59.0 Localized enlarged lymph nodes
CPT/HCPCS: 36415; 71046-TC-FY; 80048; 80053; 81003; 83735; 84100; 85025; 93005; 93010; 96372; 96374; 99285-25; G0378; J1644

== ENCOUNTER 2024-04-19 06:40 | Day surgery (SDC) | payer OTHER ==
[2024-04-18 08:35] VITALS: BMI 25.1
[2024-04-19 09:51] VITALS: RESP 18
[2024-04-19] MEDS ORDERED: MIDAZOLAM HCL 2 MG/2 ML SINGLE DOSE VIAL ONE (13:44)
[2024-04-19] MEDS: ceFAZolin 2 GRAM PREMIX BAG IVPB ONE ×2 (13:50)
[2024-04-19] MEDS ORDERED: PROPOFOL 20 ML ONE (13:56)
[2024-04-19] MEDS ORDERED: ELECTROLYTE-148 SOLN 1,000 ML IV SCH (14:00)
[2024-04-19 17:08] VITALS: BP 138/71; PULSE 69; TEMP 97.6
== END 2024-04-19 16:15 | disposition home or self-care (01) ==
LOC: JASU-SURG 06:40
PROVIDERS: ATTEND Urology
PROC: 0TF3XZZ Fragmentation in Right Kidney Pelvis, External Approach (ICD-10-PCS; principal; 2024-04-19 13:15)
DX: N13.2 Hydronephrosis with renal and ureteral calculous obstruction (principal)

== ENCOUNTER 2024-06-07 12:55 | Inpatient (IN) | payer OTHER ==
[2024-06-07] MEDS ORDERED: ALBUTEROL SO4 2.5/IPRATROPIUM 0.5 INH SOL 3 ML VIAL.NEB. NEB ONE (15:50)
[2024-06-07] MEDS: ALBUTEROL SO4 2.5/IPRATROPIUM 0.5 INH SOL 3 ML VIAL.NEB. NEB ONE (16:19)
[2024-06-07 16:36] LABS: ABSOLUTE IMMATURE GRANULOCYTES 0.03 x10^3/uL (0.0-0.031); BASOPHILS # 0.06 x10^3/uL (0.01-0.08); EOSINOPHIL % 1.3 % (0.8-7.0); HEMATOCRIT 47.8 % (40.1-51.0); HEMOGLOBIN 15.3 g/dL (13.7-17.5); MEAN CELL VOLUME 88.5 fl (79.0-92.2); MONOCYTE # 0.98 x10^3/uL (0.30-0.82); MONOCYTE % 12.8 % (5.3-12.2); PLATELET COUNT 248 x10^3/uL (163-337); RDW 15.4 % (12.2-16.1)
[2024-06-07 16:45] LABS: INR 1.01 (0.83-1.09); PROTHROMBIN TIME (PATIENT) 11.1 SEC (9.7-13.0)
[2024-06-07 16:48] LABS: ACTIVATED PTT 30.4 SECONDS (25.2-36.5)
[2024-06-07 17:56] LABS: HIV INTERPRETATION NEGATIVE (NEGATIVE)
[2024-06-07 18:08] LABS: POTASSIUM 4.7 mmol/L (3.5-5.1)
[2024-06-07 18:10] LABS: ALBUMIN 3.7 g/dl (3.4-5.0); BLOOD UREA NITROGEN 28.1 mg/dL (7-18); CALCIUM 10.2 mg/dL (8.5-10.1); MAGNESIUM 2.2 mg/dL (1.8-2.4)
[2024-06-07 18:13] LABS: CREATININE 2.9 mg/dL (0.55-1.3)
[2024-06-07 18:14] LABS: PHOSPHOROUS 3.2 mg/dL (2.5-4.9)
[2024-06-07 18:15] LABS: BILIRUBIN,TOTAL 0.7 mg/dL (0.2-1); TOT PROT 7.8 g/dl (6.4-8.2)
[2024-06-07] MEDS ORDERED: ASPIRIN 81 MG CHEWABLE TABLETS ONE ×2 (19:00→20:20)
[2024-06-07] MEDS ORDERED: FUROSEMIDE 40 MG/4 ML INJECTABLE VIAL ONE (19:01)
[2024-06-07] MEDS: ASPIRIN 81 MG CHEWABLE TABLETS PO ONE ×2 (19:09→20:50)
[2024-06-07] MEDS: FUROSEMIDE 40 MG/4 ML INJECTABLE VIAL IVPUSH ONE (19:09)
[2024-06-07 19:11] VITALS: RESP 18
[2024-06-07] MEDS ORDERED: HEPARIN INFUSION - 25,000 UNITS/500 ML INFUS.BAG IVPB ONE (20:20)
[2024-06-07] MEDS ORDERED: HEPARIN NA (PORCINE) 5,000 UNITS/ML 1ML VIAL ONE (20:20)
[2024-06-07 20:41] LABS: HCV DIAGNOSTIC IN-HOUSE W/RFLX NON-REACTIVE (NONREACTIVE)
[2024-06-07] MEDS: HEPARIN INFUSION - 25,000 UNITS/500 ML INFUS.BAG IVPB SCH (20:58)
[2024-06-07] MEDS: HEPARIN NA (PORCINE) 5,000 UNITS/ML 1ML VIAL IVPUSH ONE (20:58)
[2024-06-07] MEDS: ATORVASTATIN CA 20 MG TABLET (FP) PO SCH (22:58)
[2024-06-08] MEDS: FUROSEMIDE 40 MG/4 ML INJECTABLE VIAL IVPUSH ONE (01:17)
[2024-06-08] MEDS: ACETAMINOPHEN 500 MG TABLET (FP) PO ONE (01:34)
[2024-06-08] MEDS ORDERED: PATIENT'S OWN MEDICATION (NON-FORMULARY) (Oxycodone Hcl [Oxycontin] 30 MG Tab.Er.12h) PO PRN (06:01)
[2024-06-08 06:05] VITALS: BMI 25.7
[2024-06-08 07:34] LABS: HEMATOCRIT 46.4 % (40.1-51.0); HEMOGLOBIN 14.9 g/dL (13.7-17.5); MCHC 32.1 g/dl (32.3-36.5); MEAN CELL VOLUME 87.1 fl (79.0-92.2); PLATELET COUNT 210 x10^3/uL (163-337); RDW 15.6 % (12.2-16.1)
[2024-06-08] MEDS: FUROSEMIDE 40 MG/4 ML INJECTABLE VIAL IVPUSH SCH (07:39)
[2024-06-08] MEDS ORDERED: ATORVASTATIN CA 20 MG TABLET (FP) PO SCH (07:42)
[2024-06-08] MEDS ORDERED: oxyCODONE HCL 5 MG TABLET PO PRN (07:45)
[2024-06-08 07:51] LABS: CALCIUM 9.7 mg/dL (8.5-10.1)
[2024-06-08 07:52] LABS: ALBUMIN 3.6 g/dl (3.4-5.0); BLOOD UREA NITROGEN 36.1 mg/dL (7-18)
[2024-06-08 07:55] LABS: CREATININE 2.9 mg/dL (0.55-1.3)
[2024-06-08] MEDS ORDERED: ZOLPIDEM TARTRATE 10 MG TABLET (PARK CARE ONLY) PO PRN (07:55)
[2024-06-08 07:57] LABS: BILIRUBIN,TOTAL 0.7 mg/dL (0.2-1); TOT PROT 7.3 g/dl (6.4-8.2)
[2024-06-08] MEDS: HEPARIN NA (PORCINE) 5,000 UNITS/ML 1ML VIAL SQ SCH (07:59)
[2024-06-08] MEDS: predniSONE 10 MG TABLET (UD) PO SCH (10:35)
[2024-06-08] MEDS: ASPIRIN 81 MG CHEWABLE TABLETS PO SCH (10:35)
[2024-06-08] MEDS: METOPROLOL TARTRATE 25 MG TABLET (FP) PO SCH (10:36)
[2024-06-08 18:03] VITALS: BP 131/81; PULSE 86; TEMP 97.7
== END 2024-06-08 21:04 | disposition short-term general hospital (02) | DRG 190 ==
LOC: JER 12:55 → JERBED 20:16 → J4W 22:44
PROVIDERS: ADMIT Internal Medicine; ATTEND Internal Medicine
DX: I21.4 Non-ST elevation (NSTEMI) myocardial infarction (principal); I50.23 Acute on chronic systolic (congestive) heart failure; J84.9 Interstitial pulmonary disease, unspecified; N18.4 Chronic kidney disease, stage 4 (severe); E83.52 Hypercalcemia; Q23.1 Congenital insufficiency of aortic valve; I13.0 Hypertensive heart and chronic kidney disease with heart failure and stage 1 through stage 4 chronic kidney disease, or unspecified chronic kidney disease; D86.0 Sarcoidosis of lung; I35.0 Nonrheumatic aortic (valve) stenosis; R07.9 Chest pain, unspecified
CPT/HCPCS: 0241U-QW; 36415; 71046-TC-FY; 71250-TC; 80053; 82306; 82652; 83735; 83880; 83970; 84100; 84484; 85025; 85027; 85610; 85730; 86803; 86850; 86900; 86901; 87389; 93005; 93010; 93306-TC; 99285-25; J1644

== ENCOUNTER 2024-08-09 06:33 | Day surgery (SDC) | payer OTHER ==
[2024-08-09] MEDS ORDERED: MIDAZOLAM HCL 2 MG/2 ML SINGLE DOSE VIAL ONE (08:03)
[2024-08-09] MEDS ORDERED: ETOMIDATE 20 MG/10 ML VIAL IVPUSH ONE ×2 (08:03→08:04)
[2024-08-09] MEDS ORDERED: PROPOFOL 20 ML ONE (08:03)
[2024-08-09] MEDS ORDERED: ONDANSETRON 4 MG/2 ML VIAL ONE (08:04)
[2024-08-09] MEDS ORDERED: ALBUTEROL SO4 HFA INHALER IH ONE (08:04)
[2024-08-09] MEDS: ceFAZolin SODIUM 1 GM VIAL IVPB ONE (08:27)
[2024-08-09] MEDS ORDERED: ELECTROLYTE-148 SOLN 1,000 ML IV SCH (09:15)
[2024-08-09] MEDS ORDERED: oxyCODONE HCL 5 MG TABLET PO PRN (09:16)
[2024-08-09] MEDS ORDERED: LACTATED RINGERS SOLUTION 1,000 ML IV SCH (09:30)
[2024-08-09] MEDS: ACETAMINOPHEN 1000 MG/100 ML BAG IVPB ONE (09:36)
[2024-08-09] MEDS: ACETAMINOPHEN INJECTION 100 ML ONE (09:36)
[2024-08-09 12:00] VITALS: RESP 20; TEMP 97.8
[2024-08-09 12:10] VITALS: BP 125/57; PULSE 59
== END 2024-08-09 11:23 | disposition home or self-care (01) ==
LOC: JASU-SURG 06:33
PROVIDERS: ATTEND Urology
PROC: 0TF68ZZ Fragmentation in Right Ureter, Via Natural or Artificial Opening Endoscopic (ICD-10-PCS; principal; 2024-08-09 08:00)
PROC: 0T768DZ Dilation of Right Ureter with Intraluminal Device, Via Natural or Artificial Opening Endoscopic (ICD-10-PCS; 2024-08-09 08:00)
DX: N20.1 Calculus of ureter (principal); N13.30 Unspecified hydronephrosis
CPT/HCPCS: 76000-TC-FY; 94760; C2617